=== PATIENT | female | born 1945 | race Caucasian/White ===

== ENCOUNTER 2017-01-22 11:17 | Emergency (ER) | payer MEDICARE, BC ==
--- NOTE | 2017-01-22 11:31 | Emergency Department Record ---
History of Present Illness - General Chief Complaint: Chest Pain Stated Complaint: CHEST PAIN Time Seen by Provider: 01/22/17 11:29 Source: Patient Mode of Arrival: Ambulatory Limitations: No limitations - History of Present Illness Initial Comments: The patient is here with multiple complaints. She just completed multiple ECT treatments during a psych hospital stay in [place] 10 days ago. Now for the last week she has been having abdominal cramping, intermittent vomiting, tremors , anxiety, dizziness, and muscle spasms. She states she did vomit yesterday and feels like her sweat smells like rotten eggs. She also has been having palpitations off and on. The patient was having her medicines adjusted by her psych doctor recently also and he has stopped most of her depression medicines. The patient did have Ritalin, Ativan, and Topamax stopped a month ago in the hospital. Complaint: Other Onset/Timin -: Week(s) Severity: Moderate Severity scale (1-10): 6 Quality: Aching Consistency: Constant Context: Recent illness Anginal Symptoms: Diaphoresis - Related Data Home Medications Medication Instructions Recorded Confirmed Last Taken Calcium Carb, Citrate/Vit D3 1 each PO DAILY 06/17/14 01/22/17 1 Day Ago [Citracal + D ER Tablet] ~01/21/17 Cholecalciferol (Vitamin D3) 2,000 unit PO DAILY 06/17/14 01/22/17 1 Day Ago [Vitamin D3] ~01/21/17 Doxycycline Hyclate [Doxycycline] 100 mg PO DAILY 06/17/14 01/22/17 1 Day Ago ~01/21/17 Duloxetine HCl [Duloxetine HCl] 120 mg PO DAILY 06/17/14 01/22/17 1 Day Ago ~01/21/17 Melatonin 10 mg PO QHS 06/17/14 01/22/17 1 Day Ago ~01/21/17 Nebivolol HCl [Bystolic] 10 mg PO DAILY 06/17/14 01/22/17 1 Day Ago ~01/21/17 [place]-3 Fatty Acids/Fish Oil [Fish 1 each PO DAILY 06/17/14 01/22/17 1 Day Ago Oil 1,000 mg Softgel] ~01/21/17 Temazepam [Temazepam] 15 mg PO QHS 06/17/14 01/22/17 1 Day Ago ~01/21/17 Trazodone HCl 150 mg PO QHS 06/17/14 01/22/17 1 Month Ago ~12/23/16 Albuterol Sulfate [Proair Hfa] 1 - 2 puff IH Q4H inhaler 08/09/16 01/22/17 1 Day Ago ~01/21/17 Ezetimibe [Zetia] 10 mg PO QD tab 08/09/16 01/22/17 1 Day Ago ~01/21/17 Tiotropium Br/Olodaterol HCl 4 gm IH BID 08/09/16 01/22/17 1 Day Ago [Stiolto Respimat Inhal [place]] ~01/21/17 Allergies Allergy/AdvReac Type Severity Reaction Status Date / Time ibuprofen Allergy Unknown HIVES Verified 01/22/17 11:29 ketorolac Allergy Unknown HIVES Verified 01/22/17 11:29 NSAIDS (Non-Steroidal Allergy Unknown HIVES Verified 01/22/17 11:29 Anti-Inflamma Pyrazoles Allergy Unknown HIVES Verified 01/22/17 11:29 Salicylates * Allergy Unknown HIVES Verified 01/22/17 11:29 [Salicylates *RETIRED-12/15/15] alendronate sodium Allergy PT UNSURE Verified 01/22/17 11:29 OF REACTION hydromorphone HCl Allergy HIVES Verified 01/22/17 11:29 [From Dilaudid] methotrexate Allergy DIARRHEA Verified 01/22/17 11:29 oxaprozin [From Daypro] Allergy HIVES Verified 01/22/17 11:29 quetiapine fumarate Allergy HIVES Verified 01/22/17 11:29 [From Seroquel] sulfasalazine Allergy HIVES Verified 01/22/17 11:29 [From Azulfidine] venlafaxine HCl Allergy HIVES Verified 01/22/17 11:29 [From Effexor] Travel Screening - Travel/Exposure Within Last 30 Days Have you traveled within the last 30 days?: No - Travel/Exposure Within Last Year Have you traveled outside the [place] in the last year?: No - Additonal Travel Details Have you been exposed to anyone with a communicable illness?: No - Travel Symptoms Symptom Screening: None Review of Systems Constitutional: Reports: Malaise. Denies: Chills, Fever Eyes: Denies: Eye discharge ENT: Denies: Congestion Respiratory: Denies: Cough, Dyspnea Cardiovascular: Reports: Arrhythmia. Denies: Chest pain, Dyspnea on exertion Endocrine: Denies: Fatigue Gastrointestinal: Reports: Nausea Genitourinary: Denies: Dysuria Musculoskeletal: Denies: Arthralgia, Back pain Past Medical History - SOCIAL HISTORY Smoking Status: Former smoker Alcohol Use: None Drug Use: None - RESPIRATORY Hx Bronchitis: Yes Hx COPD: Yes - CARDIOVASCULAR Hx Cardio Disorders: Yes Hx Irregular Heartbeat: Yes (states irregular beats) - NEURO Hx Neuro Disorders: Yes Comment:: memory loss, recent ECTs for depression - GI Hx GI Disorders: Yes Hx Abdominal Pain: Yes (ruq) Hx Diverticulitis: Yes Hx Reflux: Yes Hx Nausea/Vomiting: Yes (at initial onset but not currently) Hx of Polyps: Yes Comment:: hx mass with resection 1975 - Hx Genitourinary Disorders: No - ENDOCRINE Hx Endocrine Disorders: Yes Hx Diabetes: No Hx Thyroid Disease: Yes - MUSCULOSKELETAL Hx Musculoskeletal Disorders: Yes Hx Arthritis: Yes (mostly hands and wrists) Hx Osteoporosis: Yes Comment:: lupus less frequent flare ups - PSYCH Hx Psych Problems: Yes Hx Anxiety: Yes Hx Depression: Yes (ongoing process) - HEMATOLOGY/ONCOLOGY Hx Hematology/Oncology Disorders: No Family Medical History Any Significant Family History?: Yes Physical Exam - General General Appearance: Alert, Oriented x3, Cooperative, No acute distress - Head Head exam: Atraumatic, Normocephalic, Normal inspection - Eye Eye exam: Normal appearance, PERRL - ENT Throat exam: Normal inspection. negative: Tonsillar erythema, Tonsillar exudate - Neck Neck exam: Normal inspection, Full ROM. negative: Tenderness - Respiratory Respiratory exam: Normal lung sounds bilaterally. negative: Respiratory distress - Cardiovascular Cardiovascular Exam: Regular rate, Normal rhythm, Normal heart sounds, Tachycardia - GI/Abdominal GI/Abdominal exam: Soft, Normal bowel sounds. negative: Distended, Rebound, Rigid, Tenderness - Extremities Extremities exam: Normal inspection, Full ROM, Normal capillary refill. negative: Tenderness - Neurological Neurological exam: Alert, Normal gait. negative: Abnormal gait, Altered, Motor sensory deficit - Psychiatric Psychiatric exam: negative: Anxious, Depressed - Skin Skin exam: negative: Rash Course Vital Signs 01/22/17 11:19 Temperature 98.8 F Pulse Rate 136 H Respiratory 24 Rate Blood Pressure 150/118 Pulse Ox 98 - Reevaluation(s) Reevaluation #1: The patient is doing much better at this time. Her BP and HR are much improved and she denies any pain or discomfort. On exam her HR is 95 and her abdomen is very soft and nontender in all 4 quads. 01/22/17 12:23 Reevaluation #2: The patient is doing well. She denies any pain or discomfort and is resting comfortably. 01/22/17 14:37 Reevaluation #3: The patient is doing well. I did discuss the case with Dr. Degroot from [facility] and he agrees with the plan to admit the patient to [facility]. The patient also agrees with the plan. 01/22/17 15:45 Reevaluation #4: 2nd EKG: Sinus tach at 106, new flipped T's V2-4. 01/22/17 15:47 Medical Decision Making - Data Complexity MDM Data: Labs Ordered and/or Reviewed, X-Ray Ordered and/or Reviewed, EKG Ordered and/or Reviewed - Lab Data Result diagrams: 01/22/17 11:20 01/22/17 11:20 - EKG Data -: EKG Interpreted by Me (Sinus tach at 133.) EKG: No Acute Changes - Radiology Data Radiology results: Report reviewed (CXR: No acute dz. AXR: Constipation, paucity of SB gas.) Disposition Disposition: Transfer Clinical Impression: Chest pain, atypical Disposition: Acute Care Hospital Transfer Transfer To: [facility] Reason For Transfer: EKG changes Accepting Physician: Zane Time Discussed w/Accepting Physician: 15:46 Condition: (2) Stable Forms: Patient Portal Access Time of Disposition: 15:46 Quality - Quality Measures Quality Measures: N/A - Blood Pressure Screening View Details: Yes Blood Pressure Classification: Hypertensive Reading Systolic Measurement: 150 Diastolic Measurement: 118 Screening for High Blood Pressure: < Pre-Hypertensive BP, F/U Documented > [ G8950] Pre-Hypertensive Follow-up Interventions: Follow-up with rescreen every year.
[2017-01-22] MEDS ORDERED: 0.9 % SODIUM CHLORIDE 1,000 ML BAG IV ONE ×2 (11:36→12:10)
[2017-01-22] MEDS ORDERED: LORAZEPAM 2 MG/ML VIAL IV ONE ×2 (11:36→15:44)
[2017-01-22] MEDS ORDERED: ONDANSETRON HCL IV 4 MG/2 ML VIAL IVP ONE (11:40)
[2017-01-22 11:45] LABS: BASO % 0.3 % (0-6); EOS % 0.6 % (0-6); GRAN % 54.4 % (47-80); HEMOGLOBIN 17.1 gm/dl (11.6-16.0); LYMPH % 31.8 % (16-45); MEAN CELL VOLUME 88.7 fl (81-97); MEAN CORPUSCULAR HEMOGLOBIN 30.3 pg (27-33); MEAN CORPUSCULAR HGB CONC 34.2 g/dl (32-36); MEAN PLATELET VOLUME 10.1 fl (7.4-10.4); MONO % 12.9 % (0-9); PLATELET COUNT 328 K/uL (130-400); RED BLOOD COUNT 5.64 M/uL (3.80-5.40); RED CELL DISTRIBUTION WIDTH 13.8 % (11.5-14.5); WHITE BLOOD COUNT W/O DIFF 7.1 K/uL (4.2-12.2)
[2017-01-22 11:57] LABS: ANION GAP 14.4 (7-16); CARBON DIOXIDE 23.6 mmol/L (22-30)
[2017-01-22 11:58] LABS: ALBUMIN 4.5 gm/dL (3.5-5.0); BILIRUBIN,TOTAL 0.76 mg/dL (0.2-1.3); INR 0.99; PROTHROMBIN TIME (PATIENT) 10.7 SECONDS (9.5-12.1); TOTAL PROTEIN 7.8 gm/dL (6.3-8.2)
[2017-01-22 12:09] LABS: CKMB 4.5 ug/L (0-6); TROPONIN I 0.06 ng/mL (0.00-0.034)
[2017-01-22 14:47] LABS: CKMB 4.2 ug/L (0-6); TROPONIN I 0.075 ng/mL (0.00-0.034)
[2017-01-22] MEDS ORDERED: METOPROLOL TART 5 MG/5 ML VIAL IV ONE (18:31)
--- NOTE | 2017-01-23 14:33 | RADIOLOGY REPORT ---
EXAM: CHEST, TWO VIEWS HISTORY: LEFT SHOULDER PAIN, HEADACHE, DIZZINESS. TECHNIQUE: Two views of the chest were obtained. Comparison: Chest x-ray 03/05/14. FINDINGS: The lungs are clear. The cardiac silhouette and diaphragm are unremarkable. Healed fracture posterior right fourth and sixth ribs. IMPRESSION: NO ACUTE INTRATHORACIC PROCESS. JOB NUMBER: [id number] MTDD
--- NOTE | 2017-01-23 14:43 | RADIOLOGY REPORT ---
EXAM: ABDOMEN, TWO VIEWS HISTORY: LEFT LOWER QUADRANT ABDOMINAL PAIN, NAUSEA FOR ONE WEEK. TECHNIQUE: Two views of the abdomen were obtained. Comparison: None. FINDINGS: The diaphragm was not included on the film. Abundant fecal material throughout the colon. Paucity of small bowel gas. IMPRESSION: CONSTIPATION. JOB NUMBER: [id number] MTDD
== END 2017-01-22 19:04 | disposition short-term general hospital (02) ==
LOC: ER 11:17
DX: R07.89 Other chest pain (principal); R42 Dizziness and giddiness; R06.02 Shortness of breath; R11.2 Nausea with vomiting, unspecified; R10.9 Unspecified abdominal pain; R61 Generalized hyperhidrosis; M62.838 Other muscle spasm; Z87.891 Personal history of nicotine dependence
CPT/HCPCS: 99285 ×2; 96376; 96374; 96375; 96361; 82550; 83690; 85025; 85730; 85610; 80076; 82553; 84484; 80048; 84443; 74020; 71020; 93005; 93010; J2405; J2060; J7030

== ENCOUNTER 2018-06-17 16:13 | Emergency (ER) | payer MEDICARE, BC ==
--- NOTE | 2018-06-17 16:34 | Emergency Department Record ---
History of Present Illness - General Chief Complaint: Shortness of breath Stated Complaint: MIRLANDE Time Seen by Provider: 06/17/18 16:33 Source: Patient Mode of Arrival: Ambulatory Limitations: No limitations - History of Present Illness Initial Comments: The patient is here due to retrosternal CP for the last 2 days. The pain is a sharp stabbing pain in the L lower chest that radiates intermittently to the back. The patient states the pain lasts seconds to minutes and occurs every 2-5 minutes. The pain is worse with chest rotation and twisting and palpation. She has had mild SOB with it at times but no cough, sputum, or fever. MD Complaint: Chest pain, Shortness of breath Onset/Timin -: Days(s) Severity scale (1-10): 10 Quality: Sharp Consistency: Constant Improves With: Upright position Worsens With: Other Known History Of: Other Associated Symptoms: Chest pain Treatments Prior to Arrival: None - Related Data Home Medications Medication Instructions Recorded Confirmed Last Taken Desvenlafaxine Succinate [Pristiq] 50 mg PO DAILY 06/17/18 06/17/18 Unknown Diphenoxylate HCl/Atropine 1 each PO DAILY 06/17/18 06/17/18 Unknown [Lomotil 2.5-0.025 mg Tablet] Hydrocodone/APAP Elixir [[place] 15 ml PO Q4H PRN 06/17/18 06/17/18 Unknown 7.5mg/325mg/15ml] Ondansetron HCl [Zofran] 8 mg PO DAILY 06/17/18 06/17/18 Unknown Prochlorperazine Maleate 10 mg PO Q6H 06/17/18 06/17/18 Unknown [Compazine] Ranitidine HCl [Zantac] 150 mg PO DAILY 06/17/18 06/17/18 Unknown Previous Rx's Medication Instructions Recorded Doxycycline Monohydrate [Mondoxyne 100 mg PO BID #14 capsule 06/17/18 Nl] Allergies Allergy/AdvReac Type Severity Reaction Status Date / Time adhesive tape Allergy Unknown Unverified 05/17/18 13:42 amphetamine aspartate Allergy Unknown PT UNSURE Unverified 05/17/18 13:42 [From Adderall] OF REACTION amphetamine sulfate Allergy Unknown PT UNSURE Unverified 05/17/18 13:42 [From Adderall] OF REACTION bupropion HCl Allergy Unknown Unverified 05/17/18 13:42 [From Wellbutrin] codeine Allergy Unknown Unverified 05/17/18 13:42 dextroamphetamine saccharate Allergy Unknown PT UNSURE Unverified 05/17/18 13:42 [From Adderall] OF REACTION dextroamphetamine sulfate Allergy Unknown PT UNSURE Unverified 05/17/18 13:42 [From Adderall] OF REACTION ibuprofen Allergy Unknown HIVES Unverified 05/17/18 13:42 ketorolac Allergy Unknown HIVES Unverified 05/17/18 13:42 ketorolac tromethamine Allergy Unknown Unverified 05/17/18 13:42 [From Toradol] levocetirizine Allergy Unknown Unverified 05/17/18 13:42 dihydrochloride [From Xyzal] mirtazapine [From Remeron] Allergy Unknown Unverified 05/17/18 13:42 naproxen Allergy Unknown Unverified 05/17/18 13:42 NSAIDS (Non-Steroidal Allergy Unknown HIVES Unverified 05/17/18 13:42 Anti-Inflamma prednisone Allergy Unknown Unverified 05/17/18 13:42 Pyrazoles Allergy Unknown HIVES Unverified 05/17/18 13:42 Salicylates * Allergy Unknown HIVES Unverified 05/17/18 13:42 [Salicylates *RETIRED-12/15/15] alendronate sodium Allergy PT UNSURE Unverified 05/17/18 13:42 OF REACTION hydromorphone HCl Allergy HIVES Unverified 05/17/18 13:42 [From Dilaudid] methotrexate Allergy DIARRHEA Unverified 05/17/18 13:42 oxaprozin [From Daypro] Allergy HIVES Unverified 05/17/18 13:42 quetiapine fumarate Allergy HIVES Unverified 05/17/18 13:42 [From Seroquel] sulfasalazine Allergy HIVES Unverified 05/17/18 13:42 [From Azulfidine] venlafaxine HCl Allergy HIVES Unverified 05/17/18 13:42 [From Effexor] Travel Screening - Travel/Exposure Within Last 30 Days Have you traveled within the last 30 days?: No Review of Systems Constitutional: Denies: Chills, Fever Eyes: Denies: Eye discharge ENT: Denies: Congestion Respiratory: Reports: Dyspnea. Denies: Cough Cardiovascular: Reports: Chest pain. Denies: Arrhythmia, Dyspnea on exertion Endocrine: Denies: Fatigue Gastrointestinal: Denies: Diarrhea, Vomiting Genitourinary: Denies: Dysuria Musculoskeletal: Denies: Arthralgia Skin: Denies: Bruising Past Medical History - SOCIAL HISTORY Smoking Status: Former smoker - RESPIRATORY Hx Respiratory Disorders: Yes Hx Bronchitis: Yes Hx COPD: Yes Comment:: cancer - CARDIOVASCULAR Hx Cardio Disorders: Yes Hx Irregular Heartbeat: Yes (states irregular beats) - NEURO Hx Neuro Disorders: Yes Comment:: memory loss, recent ECTs for depression - GI Hx GI Disorders: Yes Hx Abdominal Pain: Yes (ruq) Hx Diverticulitis: Yes Hx Reflux: Yes Hx Nausea/Vomiting: Yes (at initial onset but not currently) Hx of Polyps: Yes Comment:: hx mass with resection 1975 - Hx Genitourinary Disorders: No - ENDOCRINE Hx Endocrine Disorders: Yes Hx Diabetes: No Hx Thyroid Disease: Yes - MUSCULOSKELETAL Hx Musculoskeletal Disorders: Yes Hx Arthritis: Yes (mostly hands and wrists) Hx Osteoporosis: Yes Comment:: lupus less frequent flare ups - PSYCH Hx Psych Problems: Yes Hx Anxiety: Yes Hx Depression: Yes (ongoing process) - HEMATOLOGY/ONCOLOGY Hx Hematology/Oncology Disorders: Yes Hx Cancer: Yes Hx Chemotherapy: No Hx Radiation Therapy: No Family Medical History Any Significant Family History?: No Physical Exam - General General Appearance: Alert, Oriented x3, Cooperative, No acute distress - Head Head exam: Atraumatic, Normocephalic, Normal inspection - Eye Eye exam: Normal appearance, PERRL - ENT Throat exam: Normal inspection. negative: Tonsillar erythema, Tonsillar exudate - Neck Neck exam: Normal inspection, Full ROM. negative: Tenderness - Respiratory Respiratory exam: Normal lung sounds bilaterally, Chest wall tenderness ( Palpation of the lower sternum exactly reproduces the patient's pain. ). negative: Respiratory distress, Stridor, Wheezes - Cardiovascular Cardiovascular Exam: Regular rate, Normal rhythm, Normal heart sounds - GI/Abdominal GI/Abdominal exam: Soft, Normal bowel sounds. negative: Tenderness - Extremities Extremities exam: Normal inspection, Full ROM, Normal capillary refill. negative: Tenderness - Back Back exam: Reports: Normal inspection Image of Body Front/Back: 1 - Location of pain and tenderness. - Neurological Neurological exam: Alert, Normal gait. negative: Abnormal gait Course Vital Signs 06/17/18 16:18 Pulse Rate 103 H Respiratory 22 Rate Blood Pressure 146/80 Pulse Ox 97 - Reevaluation(s) Reevaluation #1: The patient is feeling a lot better after the [employer]. Her pain has MUCH improved but is still present intermittently with sitting forward on the bed and with chest rotation. The pain does continue to be reproducible with palpation. She denies any SOB, MIRLANDE, or sweating. 06/17/18 18:10 Reevaluation #2: I did discuss the CT report with the patient and family. There clearly is no heart or lung issue that will keep the patient in the hospital tonight. There does seem to be a small RLL mass which is hard to determine is new or old. Due to that fact the patient is to take the CT to her Oncologist this week for further evaluation. Her pain is much improved and does appear to be reproducible. She is to keep taking her oral home pain meds for that. I doubt any pneumonia due to the fact the patient has no fever, WBC, or cough but will cover her for pneumonia with Doxycycline. 06/17/18 18:46 Medical Decision Making - Data Complexity MDM Data: Labs Ordered and/or Reviewed, X-Ray Ordered and/or Reviewed, EKG Ordered and/or Reviewed - Lab Data Result diagrams: 06/17/18 16:40 06/17/18 16:40 - EKG Data -: EKG Interpreted by Wi EKG: No Acute Changes, Normal EKG - Radiology Data Radiology results: Report reviewed (CXR: R sided opacities, O/W neg. CT: Neg for PE or dissection. 2.5x2.8 cm mass RLL, possible distal infiltrate.) Disposition Disposition: Discharge Clinical Impression: Acute chest wall pain Disposition: Home, Self-Care Condition: (2) Stable Instructions: Chest Wall Pain (ED) Additional Instructions: Please take your home pain medicines as needed and please see your Oncologist this week to compare the CT today with your most recent scan. Continue the Doxycycline tomorrow. Return to the ER for any worsening symptoms, pain, or fever. Prescriptions: Doxycycline Monohydrate [Mondoxyne Nl] 100 mg PO BID #14 capsule Forms: Patient Portal Access Time of Disposition: 18:50 Quality - Quality Measures Quality Measures: N/A - Blood Pressure Screening View Details: Yes Does Patient Have Any of the Following: No Blood Pressure Classification: Pre-Hypertensive BP Reading Systolic Measurement: 146 Diastolic Measurement: 80 Screening for High Blood Pressure: < Pre-Hypertensive BP, F/U Documented > [ G8950] Pre-Hypertensive Follow-up Interventions: Referral to alternative/primary care provider.
[2018-06-17] MEDS ORDERED: ACETAMINOPHEN 1,000 MG/100 ML BTL IVPB ONE (16:40)
[2018-06-17 16:54] LABS: HEMATOCRIT 41.3 % (35.0-47.0); HEMOGLOBIN 13.2 gm/dl (11.6-16.0); MEAN CORPUSCULAR HEMOGLOBIN 29.1 pg (27-33); MEAN PLATELET VOLUME 8.8 fl (7.4-10.4); PLATELET COUNT 333 K/uL (130-400); RED BLOOD COUNT 4.54 M/uL (3.80-5.40); RED CELL DISTRIBUTION WIDTH 14.9 % (11.5-14.5); WHITE BLOOD COUNT W/O DIFF 5.7 K/uL (4.2-12.2)
[2018-06-17 17:07] LABS: BLOOD UREA NITROGEN 13 mg/dL (8-23); CREATININE 0.9 mg/dL (0.5-0.9); EST GLOMERULAR FILTRATION RATE > 60 mL/min; PARTIAL THROMBOPLASTIN TIME 30.3 SECONDS (24.5-39.1); PROTHROMBIN TIME (PATIENT) 10.5 SECONDS (9.5-12.1)
[2018-06-17 17:10] LABS: GLUCOSE,RANDOM 102 mg/dL (74-109)
[2018-06-17 17:12] LABS: CREATINE PHOSPHOKINASE 66 U/L (26-192)
[2018-06-17 17:14] LABS: CKMB 2.6 ng/mL (<3.77)
[2018-06-17] MEDS ORDERED: 0.9 % SODIUM CHLORIDE 1,000 ML BAG IV ONE (17:22)
[2018-06-17] MEDS ORDERED: DOXYCYCLINE HYCLATE 100 MG CAPSULE PO ONE (18:45)
[2018-06-17] MEDS ORDERED: HEPARIN SODIUM FLUSH 100 UNITS/ML SYR 5ML IVP ONE (19:05)
--- NOTE | 2018-06-19 13:33 | RADIOLOGY REPORT ---
EXAM: CHEST, TWO VIEWS HISTORY: RIGHT LOWER LATERAL RIB PAIN. NO KNOWN INJURY. SYMPTOMS FOR THE PAST TWO DAYS. TECHNIQUE: PA and lateral upright views of the chest were obtained. Comparison: 03/25/17 and 03/05/14. FINDINGS: An [id number] catheter is in place on the right. There is volume loss within the right hemithorax with focal parenchymal opacity within the right perihilar region. The appearance suggest an area of previous surgery or scarring. There are mild areas of infiltrate within the right mid and lower lung garcia which may indicate superimposed pneumonia. There is no pneumothorax or effusion. There are old healed right rib fractures. There are no visible acute osseous abnormalities. There is minor chronic anterior wedging of a single mid thoracic vertebral body. Mild degenerative changes are also present within the spine. IMPRESSION: 1. FOCAL PARENCHYMAL OPACITY WITHIN THE RIGHT PERIHILAR REGIONS AND VOLUME LOSS WITHIN THE RIGHT HEMITHORAX SUGGESTING AN AREA OF PREVIOUS SURGERY OR SCARRING. 2. PATCHY INFILTRATES WITHIN THE RIGHT MID AND LOWER LUNG GARCIA WHICH MAY INDICATE SUPERIMPOSED PNEUMONIA. 3. NO ACUTE OSSEOUS ABNORMALITY IDENTIFIED. JOB NUMBER: [id number] MTDD
--- NOTE | 2018-06-19 14:28 | CT ANGIOGRAM REPORT ---
EXAM: CT ANGIOGRAM OF THE CHEST WITH POST PROCESSING HISTORY: CHEST PAIN AND RIGHT LOWER RIB PAIN. PREVIOUS HISTORY OF SMALL CELL LUNG CANCER WITHIN THE RIGHT LUNG STATUS POST CHEMOTHERAPY AND RADIATION THERAPY. TECHNIQUE: Standard CT angiography of the chest was performed with post processing following the bolus administration of 90 ml of Omnipaque 350. Comparison: Chest x-ray from the same date. FINDINGS: The pulmonary arterial tree is normal. There is no pulmonary embolism. There is no aortic aneurysm or dissection. The heart is normal in size. Coronary artery calcifications are present. There is no pericardial effusion. There are scattered nonenlarged mediastinal lymph nodes. There is a mass like area of consolidation within the infrahilar right lower lobe measuring 2.5 x 2.8 cm. This partially encases the right lower lobe bronchovascular structures. This extends contiguously to the right hilum. There is a separate spiculated appearing nodule within the posteromedial aspect of the right lower lobe measuring 1.8 x 1.2 cm. There are areas of post radiation fibrosis within the right perihilar lung. There are nonspecific infiltrates within the right lower lobe which are suspicious for superimposed pneumonia. These infiltrates also have a slightly nodular configuration. There is a small right pleural effusion. There is no pneumothorax. There are two noncalcified nodules within the left lung. There is a 4 mm noncalcified nodule within the apex centrally on image number 22. A 4 mm nodule is also noted within the left lower lobe on image number 64. The left lung is otherwise clear. The visualized portions of the upper abdomen are unremarkable. There are old healed fractures of the posterolateral aspects of the right fourth and sixth ribs. No acute osseous abnormality is identified. Degenerative changes are present within the thoracic spine. IMPRESSION: 1. NO EVIDENCE FOR PULMONARY EMBOLUS OR AORTIC DISSECTION. 2. THERE IS A 2.5 X 2.8 CM RIGHT INFRAHILAR MASS PARTIALLY ENCASING THE RIGHT LOWER LOBE BRONCHOVASCULAR STRUCTURES. THERE IS CONTIGUOUS EXTENSION TO THE RIGHT HILUM. 3. ADDITIONAL NODULAR AREAS ARE ALSO NOTED WITHIN THE RIGHT LOWER LOBE. THE NEXT LARGEST NODULE IS LOCATED WITHIN THE POSTEROMEDIAL ASPECT AND MEASURES 1.8 X 1.2 CM. 4. SMALL RIGHT PLEURAL EFFUSION. 5. POST RADIATION CHANGES WITHIN THE RIGHT PERIHILAR LUNG. THERE ARE FOCAL INFILTRATES WELL WITHIN THE RIGHT LOWER LOBE WHICH MAY INDICATED SUPERIMPOSED PNEUMONIA. 6. THERE ARE TWO 4 MM NONCALCIFIED NODULES WITHIN THE LEFT LUNG. JOB NUMBER: [id number] [facility]
== END 2018-06-17 19:08 | disposition home or self-care (01) ==
LOC: ER 16:13
DX: R07.89 Other chest pain (principal); R06.02 Shortness of breath; M54.9 Dorsalgia, unspecified; R91.8 Other nonspecific abnormal finding of lung field; J44.9 Chronic obstructive pulmonary disease, unspecified; Z87.891 Personal history of nicotine dependence; C34.91 Malignant neoplasm of unspecified part of right bronchus or lung
CPT/HCPCS: 99284 ×2; 96374; 82550; 85025; 85730; 85610; 82553; 80048; 80053; 84484; 85379; 85027; 71046; 71275; 93005; 93010; Q9967; J1642; J7030

== ENCOUNTER 2018-06-27 09:39 | Emergency (ER) | payer MEDICARE, BC ==
[2018-06-27 10:05] LABS: HEMATOCRIT 41.3 % (35.0-47.0); MEAN CORPUSCULAR HGB CONC 31.5 g/dl (32-36); MEAN PLATELET VOLUME 9.2 fl (7.4-10.4); PLATELET COUNT 322 K/uL (130-400); RED BLOOD COUNT 4.49 M/uL (3.80-5.40); RED CELL DISTRIBUTION WIDTH 15.3 % (11.5-14.5); WHITE BLOOD COUNT W/O DIFF 5.5 K/uL (4.2-12.2)
--- NOTE | 2018-06-27 10:12 | Emergency Department Record ---
History of Present Illness - General Chief Complaint: Shortness of breath Stated Complaint: SOB Time Seen by Provider: 06/27/18 09:41 Source: Patient Mode of Arrival: Wheelchair Limitations: No limitations - History of Present Illness Initial Comments: The patient is here due to having problems with L sided CP and coughing for the last 12 days. She was in the ER here 10 days ago for the same issues. She did have normal lab work and had a PE study that was neg for a PE but did demonstrate a R hilar tumor with post obstructive pneumonia changes. She was started on an oral Abx and was supposed to see her Oncologist last week for a repeat CT. The patient was not able to keep the appointment so it was rescheduled for today at 1pm. The patient did go to the [facility] 2 days ago due to the persistent coughing and L sided rib pain and did have her oral Abx changed to Levaquin. Since she feels no better and did have an appointment with her PCP today. Due to the persistent issues she was again sent to the ER for treatment. The patient is mainly complaining of SOB and L CP with coughing and twisting. She denies any fever, sputum production, LEDBETTER, or CP at rest. MD Complaint: Cough, Shortness of breath Onset/Timin -: Days(s) Severity scale (1-10): 10 Quality: Sharp Consistency: Constant Improves With: Oxygen Worsens With: Exertion Known History Of: Other Associated Symptoms: Cough Treatments Prior to Arrival: None - Related Data Home Oxygen Therapy: No Allergies Allergy/AdvReac Type Severity Reaction Status Date / Time adhesive tape Allergy Unknown Unverified 05/17/18 13:42 amphetamine aspartate Allergy Unknown PT UNSURE Unverified 05/17/18 13:42 [From Adderall] OF REACTION amphetamine sulfate Allergy Unknown PT UNSURE Unverified 05/17/18 13:42 [From Adderall] OF REACTION bupropion HCl Allergy Unknown Unverified 05/17/18 13:42 [From Wellbutrin] codeine Allergy Unknown Unverified 05/17/18 13:42 dextroamphetamine saccharate Allergy Unknown PT UNSURE Unverified 05/17/18 13:42 [From Adderall] OF REACTION dextroamphetamine sulfate Allergy Unknown PT UNSURE Unverified 05/17/18 13:42 [From Adderall] OF REACTION ibuprofen Allergy Unknown HIVES Unverified 05/17/18 13:42 ketorolac Allergy Unknown HIVES Unverified 05/17/18 13:42 ketorolac tromethamine Allergy Unknown Unverified 05/17/18 13:42 [From Toradol] levocetirizine Allergy Unknown Unverified 05/17/18 13:42 dihydrochloride [From Xyzal] mirtazapine [From Remeron] Allergy Unknown Unverified 05/17/18 13:42 naproxen Allergy Unknown Unverified 05/17/18 13:42 NSAIDS (Non-Steroidal Allergy Unknown HIVES Unverified 05/17/18 13:42 Anti-Inflamma prednisone Allergy Unknown Unverified 05/17/18 13:42 Pyrazoles Allergy Unknown HIVES Unverified 05/17/18 13:42 Salicylates * Allergy Unknown HIVES Unverified 05/17/18 13:42 [Salicylates *RETIRED-12/15/15] alendronate sodium Allergy PT UNSURE Unverified 05/17/18 13:42 OF REACTION hydromorphone HCl Allergy HIVES Unverified 05/17/18 13:42 [From Dilaudid] methotrexate Allergy DIARRHEA Unverified 05/17/18 13:42 oxaprozin [From Daypro] Allergy HIVES Unverified 05/17/18 13:42 quetiapine fumarate Allergy HIVES Unverified 05/17/18 13:42 [From Seroquel] sulfasalazine Allergy HIVES Unverified 05/17/18 13:42 [From Azulfidine] venlafaxine HCl Allergy HIVES Unverified 05/17/18 13:42 [From Effexor] Travel Screening - Travel/Exposure Within Last 30 Days Have you traveled within the last 30 days?: No Review of Systems Constitutional: Denies: Chills, Fever Eyes: Denies: Eye discharge ENT: Denies: Congestion, Dental pain Respiratory: Reports: Cough, Dyspnea Cardiovascular: Reports: Chest pain (with coughing.). Denies: Arrhythmia Endocrine: Reports: Fatigue Gastrointestinal: Denies: Abdominal pain Genitourinary: Denies: Dysuria Musculoskeletal: Denies: Arthralgia Skin: Denies: Bruising Past Medical History - SOCIAL HISTORY Smoking Status: Former smoker Alcohol Use: None Drug Use: None - RESPIRATORY Hx Respiratory Disorders: Yes Hx Bronchitis: Yes Hx COPD: Yes Hx Pneumonia: Yes Comment:: cancer - CARDIOVASCULAR Hx Cardio Disorders: Yes Hx Irregular Heartbeat: Yes (states irregular beats) - NEURO Hx Neuro Disorders: Yes Comment:: memory loss, recent ECTs for depression - GI Hx GI Disorders: Yes Hx Abdominal Pain: Yes (ruq) Hx Diverticulitis: Yes Hx Reflux: Yes Hx Nausea/Vomiting: Yes (at initial onset but not currently) Hx of Polyps: Yes Comment:: hx mass with resection 1975 - Hx Genitourinary Disorders: No - ENDOCRINE Hx Endocrine Disorders: Yes Hx Diabetes: No Hx Thyroid Disease: Yes - MUSCULOSKELETAL Hx Musculoskeletal Disorders: Yes Hx Arthritis: Yes (mostly hands and wrists) Hx Osteoporosis: Yes Comment:: lupus less frequent flare ups - PSYCH Hx Psych Problems: Yes Hx Anxiety: Yes Hx Depression: Yes (ongoing process) - HEMATOLOGY/ONCOLOGY Hx Hematology/Oncology Disorders: Yes Hx Cancer: Yes Hx Chemotherapy: No Hx Radiation Therapy: No Family Medical History Any Significant Family History?: Yes Physical Exam - General General Appearance: Alert, Oriented x3, Cooperative, No acute distress - Head Head exam: Atraumatic, Normocephalic, Normal inspection - Eye Eye exam: Normal appearance, PERRL, EOMI - ENT Throat exam: Normal inspection. negative: Tonsillar erythema, Tonsillar exudate - Neck Neck exam: Normal inspection, Full ROM. negative: Tenderness - Respiratory Respiratory exam: Normal lung sounds bilaterally, Chest wall tenderness (The L sided CP is 100% reproducible to palpation of the L chest wall. There is no rash or erythema present on the skin.). negative: Respiratory distress - Cardiovascular Cardiovascular Exam: Regular rate, Normal rhythm, Normal heart sounds. negative : Diastolic murmur, Systolic murmur - GI/Abdominal GI/Abdominal exam: Soft, Normal bowel sounds. negative: Tenderness - Extremities Extremities exam: Normal inspection, Full ROM, Normal capillary refill. negative: Tenderness - Back Back exam: Reports: Normal inspection - Neurological Neurological exam: Alert, Normal gait, Oriented X3. negative: Abnormal gait, Altered, Motor sensory deficit Course Vital Signs 06/27/18 09:44 Temperature 98.6 F Pulse Rate 104 H Respiratory 20 Rate Blood Pressure 126/80 Pulse Ox 99 - Reevaluation(s) Reevaluation #1: The patient is resting comfortably at this time. She denies any new pain or discomfort and has no SOB. I did discuss the normal test results with her and the need for F/U with her Oncologist. I also did discuss the case with Dr. Espinoza and he feels the patient is stable for discharge and would like her on Decadron for 5 weeks in a tapering dose. He also would like her to keep her appointment there today and to see him as previously planned. 06/27/18 11:13 Medical Decision Making - Data Complexity MDM Data: Labs Ordered and/or Reviewed, X-Ray Ordered and/or Reviewed, EKG Ordered and/or Reviewed - Lab Data Result diagrams: 06/27/18 09:50 06/27/18 09:50 Lab Results 06/27/18 Range/Units 09:50 WBC 5.5 (4.2-12.2) K/uL RBC 4.49 (3.80-5.40) M/uL Hgb 13.0 (11.6-16.0) gm/dl Hct 41.3 (35.0-47.0) % MCV 92.0 (81-97) fl MCH 29.0 (27-33) pg MCHC 31.5 L (32-36) g/dl RDW 15.3 H (11.5-14.5) % Plt Count 322 (130-400) K/uL MPV 9.2 (7.4-10.4) fl Eosinophils % Not Reportable Basophils % Not Reportable - EKG Data -: EKG Interpreted by Me EKG: No Acute Changes, Normal EKG - Radiology Data Radiology results: Report reviewed (CXR: Neg for acute changes. There are chronic changes to the R lower lobe but no acute infiltrate.) Disposition Disposition: Discharge Clinical Impression: Acute chest wall pain Disposition: Home, Self-Care Condition: (2) Stable Instructions: Dyspnea (ED) Additional Instructions: Please continue your regular medicines and please start the Decadron. Please see Dr. Espinoza as planned and proceed to the ER for any worsening symptoms. Forms: Patient Portal Access Time of Disposition: 11:15 Quality - Quality Measures Quality Measures: N/A - Blood Pressure Screening View Details: Yes Does Patient Have Any of the Following: No Blood Pressure Classification: Normal BP Reading Systolic Measurement: 119 Diastolic Measurement: 70 Screening for High Blood Pressure: < Normal BP, F/U Not Required > [G8783]
[2018-06-27 10:13] LABS: PLATELET ESTIMATE NORMAL (NORMAL)
[2018-06-27 10:15] LABS: BLOOD UREA NITROGEN 22 mg/dL (8-23); EST GLOMERULAR FILTRATION RATE 58 mL/min
[2018-06-27 10:18] LABS: GLUCOSE,RANDOM 99 mg/dL (74-109)
[2018-06-27 10:21] LABS: CREATINE PHOSPHOKINASE 48 U/L (26-192)
[2018-06-27 10:22] LABS: CKMB 2.7 ng/mL (<3.77)
[2018-06-27 10:26] LABS: INR 1.1; PARTIAL THROMBOPLASTIN TIME 28.2 SECONDS (24.5-39.1); PROTHROMBIN TIME (PATIENT) 10.7 SECONDS (9.5-12.1)
[2018-06-27] MEDS ORDERED: HYDROCODONE/APAP 7.5/325 15ML ELIXIR PO ONE (10:34)
--- NOTE | 2018-06-29 06:51 | RADIOLOGY REPORT ---
EXAM: CHEST, TWO VIEWS HISTORY: SHORTNESS OF BREATH. TECHNIQUE: Frontal and lateral views of the chest were performed. Comparison: 06/25/18. FINDINGS: Right [id number] catheter. The heart size is normal. Persistent opacity right hemithorax. Atelectasis right lung base. No acute type infiltrate or pleural effusion. IMPRESSION: PERSISTENT OPACITY RIGHT HEMITHORAX. RIGHT [id number] CATHETER IN PLACE. NO ACUTE PROCESS. JOB NUMBER: [id number] [facility]
== END 2018-06-27 11:29 | disposition home or self-care (01) ==
LOC: ER 09:39
DX: R07.89 Other chest pain (principal); R06.02 Shortness of breath; J44.9 Chronic obstructive pulmonary disease, unspecified; Z87.891 Personal history of nicotine dependence
CPT/HCPCS: 99284 ×2; 82550; 85730; 85610; 82553; 80048; 84484; 85027; 71046; 93005; 93010; J3490

== ENCOUNTER 2018-09-12 22:32 | Inpatient (IN) | payer MEDICARE, BC ==
--- NOTE | 2018-09-12 22:58 | Emergency Department Record ---
History of Present Illness - General Chief Complaint: Slurred speech Stated Complaint: SLURRING,LOSS OF BALANCE Time Seen by Provider: 09/12/18 22:40 Source: Patient, Family - History of Present Illness Initial Comments: The patient has been diagnosed with small cell lung cancer in June of 2017. She was treated with chemo and radiation and finished all courses in 6 months and is currently in remission according to her oncologist Dr. Espinoza. On Monday she began to feel dizzy with the room spinning. She fell from standing position Monday. Her noticed her speech was slightly slurred around 1645 tonight before he went to the basketball game. He also noticed that her medications have been all off schedule as well. She had been on Sacaton liquid for the past year and was switched to ultram which she took Monday. She also has been noted to have some confusion the past 2 days: she thought is was 10 a.m. when it was 10 pm tonight, also not oriented to day, and confusing her doctors, she was trying to cancel appointments by calling late at night. When he returned from the basketball game he stated the slurred speech was worse so he brought her here. - Related Data Home Medications: Home Medications Medication Instructions Recorded Confirmed Last Taken Diphenhydramine HCl [Allergy] 25 mg PO Q6H PRN 09/12/18 09/12/18 Unknown Docusate Sodium [Colace] 100 mg PO BID 09/12/18 09/12/18 Unknown Quetiapine Fumarate [Seroquel] 25 mg PO DAILY 09/12/18 09/12/18 Unknown Quetiapine Fumarate [Seroquel] 50 mg PO QHS 09/12/18 09/12/18 Unknown Tramadol HCl [Ultram] 50 mg PO Q8H PRN 09/12/18 09/12/18 Unknown Allergies/Adverse Reactions: Allergies Allergy/AdvReac Type Severity Reaction Status Date / Time adhesive tape Allergy Unknown BLISTERS Verified 09/12/18 23:31 amphetamine aspartate Allergy Unknown PT UNSURE Verified 09/12/18 23:31 [From Adderall] OF REACTION amphetamine sulfate Allergy Unknown PT UNSURE Verified 09/12/18 23:31 [From Adderall] OF REACTION bupropion HCl Allergy Unknown HIVES Verified 09/12/18 23:31 [From Wellbutrin] dextroamphetamine saccharate Allergy Unknown PT UNSURE Verified 09/12/18 23:31 [From Adderall] OF REACTION dextroamphetamine sulfate Allergy Unknown PT UNSURE Verified 09/12/18 23:31 [From Adderall] OF REACTION ibuprofen Allergy Unknown HIVES Verified 09/12/18 23:31 ketorolac Allergy Unknown HIVES Verified 09/12/18 23:31 ketorolac tromethamine Allergy Unknown HIVES Verified 09/12/18 23:31 [From Toradol] levocetirizine Allergy Unknown PT UNSURE Verified 09/12/18 23:31 dihydrochloride OF REACTION [From Xyzal] mirtazapine [From Remeron] Allergy Unknown PT UNSURE Verified 09/12/18 23:31 OF REACTION naproxen Allergy Unknown HIVES Verified 09/12/18 23:31 NSAIDS (Non-Steroidal Allergy Unknown HIVES Verified 09/12/18 23:31 Anti-Inflamma prednisone Allergy Unknown ANAPHYLAXIS Verified 09/12/18 23:31 Pyrazoles Allergy Unknown HIVES Verified 09/12/18 23:31 Salicylates * Allergy Unknown HIVES Verified 09/12/18 23:31 [Salicylates *RETIRED-12/15/15] alendronate sodium Allergy PT UNSURE Verified 09/12/18 23:31 OF REACTION hydromorphone HCl Allergy HIVES Verified 09/12/18 23:31 [From Dilaudid] methotrexate Allergy DIARRHEA Verified 09/12/18 23:31 oxaprozin [From Daypro] Allergy HIVES Verified 09/12/18 23:31 quetiapine fumarate Allergy HIVES Verified 09/12/18 23:31 [From Seroquel] sulfasalazine Allergy HIVES Verified 09/12/18 23:31 [From Azulfidine] venlafaxine HCl Allergy HIVES Verified 09/12/18 23:31 [From Effexor] Review of Systems Reviewed: No additional complaints except as noted below Constitutional: Reports: As per HPI. Denies: Chills, Fever, Malaise, Night sweats, Weakness, Weight change Eyes: Reports: As per HPI. Denies: Eye discharge, Eye pain, Photophobia, Vision change ENT: Reports: As per HPI. Denies: Congestion, Dental pain, Ear pain, Epistaxis , Hearing loss, Throat pain Respiratory: Reports: As per HPI. Denies: Cough, Dyspnea, Hemoptysis, Stridor, Wheezes Cardiovascular: Reports: As per HPI. Denies: Arrhythmia, Chest pain, Dyspnea on exertion, Edema, Murmurs, Orthopnea, Palpitations, Paroxysmal nocturnal dyspnea, Rheumatic Fever, Syncope Endocrine: Reports: As per HPI. Denies: Fatigue, Heat or cold intolerance, Polydipsia, Polyuria Gastrointestinal: Reports: As per HPI. Denies: Abdominal pain, Constipation, Diarrhea, Hematemesis, Hematochezia, Melena, Nausea, Vomiting Genitourinary: Reports: As per HPI. Denies: Abnormal menses, Discharge, Dyspareunia, Dysuria, Frequency, Hematuria, Incontinence, Retention, Urgency Musculoskeletal: Reports: As per HPI. Denies: Arthralgia, Back pain, Gout, Joint swelling, Myalgia, Neck pain Skin: Reports: As per HPI. Denies: Bruising, Change in color, Change in hair/ nails, Lesions, Pruritus, Rash Neurological: Reports: As per HPI. Denies: Abnormal gait, Confusion, Headache, Numbness, Paresthesias, Seizure, Tingling, Tremors, Vertigo, Weakness Psychiatric: Reports: As per HPI. Denies: Anxiety, Auditory hallucinations, Depression, Homicidal thoughts, Suicidal thoughts, Visual hallucinations Hematological/Lymphatic: Reports: As per HPI. Denies: Anemia, Blood Clots, Easy bleeding, Easy bruising, Swollen glands Past Medical History - SOCIAL HISTORY Smoking Status: Former smoker Drug Use: None - RESPIRATORY Hx Respiratory Disorders: Yes Hx Bronchitis: Yes Hx COPD: Yes Hx Pneumonia: Yes Comment:: cancer - CARDIOVASCULAR Hx Cardio Disorders: Yes Hx Irregular Heartbeat: Yes (states irregular beats) - NEURO Hx Neuro Disorders: Yes Comment:: memory loss, recent ECTs for depression - GI Hx GI Disorders: Yes Hx Abdominal Pain: Yes (ruq) Hx Diverticulitis: Yes Hx Reflux: Yes Hx Nausea/Vomiting: Yes (at initial onset but not currently) Hx of Polyps: Yes Comment:: hx mass with resection 1975 - Hx Genitourinary Disorders: No - ENDOCRINE Hx Endocrine Disorders: Yes Hx Diabetes: No Hx Thyroid Disease: Yes - MUSCULOSKELETAL Hx Musculoskeletal Disorders: Yes Hx Arthritis: Yes (mostly hands and wrists) Hx Osteoporosis: Yes Comment:: lupus less frequent flare ups - PSYCH Hx Psych Problems: Yes Hx Anxiety: Yes Hx Depression: Yes (ongoing process) - HEMATOLOGY/ONCOLOGY Hx Hematology/Oncology Disorders: Yes Hx Cancer: Yes Hx Chemotherapy: No Hx Radiation Therapy: No Physical Exam - General General Appearance: Alert, Oriented x3, Cooperative, No acute distress, Other ( alopecia wearing beret) - Head Head exam: Normal inspection Head exam detail: Other (alopecia) - Eye Eye exam: Normal appearance, PERRL, EOMI. negative: Conjunctival injection, Nystagmus Pupils: Normal accommodation - ENT ENT exam: Normal exam, Mucous membranes moist, Normal external ear exam, Normal orophraynx, TM's normal bilaterally. negative: Mucous membranes dry Ear exam: Normal external inspection. negative: External canal tenderness Nasal Exam: Normal inspection. negative: Discharge, Sinus tenderness Mouth exam: Normal external inspection, Tongue normal Teeth exam: Normal inspection. negative: Dental caries Throat exam: Normal inspection. negative: Tonsillar erythema, Tonsillomegaly, Tonsillar exudate - Neck Neck exam: Normal inspection, Full ROM. negative: Lymphadenopathy, Meningismus , Tenderness - Respiratory Respiratory exam: Normal lung sounds bilaterally. negative: Accessory muscle use, Chest wall tenderness, Respiratory distress - Cardiovascular Cardiovascular Exam: Normal rhythm, Normal heart sounds, Tachycardia - GI/Abdominal GI/Abdominal exam: Soft, Normal bowel sounds. negative: Tenderness - Rectal Rectal exam: Deferred - exam: Deferred - Extremities Extremities exam: Normal inspection, Full ROM, Normal capillary refill. negative: Calf tenderness, Pedal edema, Tenderness - Back Back exam: Reports: Normal inspection, Full ROM. Denies: Muscle spasm, Rash noted, Tenderness - Neurological Neurological exam: Alert, CN II-XII intact, Normal gait, Oriented X3, Reflexes normal, Other (trace of slurred speech). negative: Motor sensory deficit - Psychiatric Psychiatric exam: Normal affect, Normal mood - Skin Skin exam: Dry, Intact, Normal color, Warm Course Vital Signs 09/12/18 22:38 Temperature 98.1 F Pulse Rate [ 101 H Pulse Ox Probe] Respiratory 24 Rate Blood Pressure 111/54 [Right Arm] Pulse Ox 96 - Reevaluation(s) Reevaluation #1: returned from CT scan and states she gets all jittery when she tries to lay down at night to sleep. 09/12/18 23:24 Reevaluation #2: Discussed with about admission. He prefers she be admitted here as they live in town here. Her confusion is new and she is unable to tell us if she took her evening medications which she normally always could in the past. She also thinks it is September 26. She was confused when the nurse helped her use the bathroom to obtain a UA and she asked me if she could "get dressed now" when her test results haven't returned. 09/12/18 23:59 Medical Decision Making - Management Options MDM Management: Additional Work-up Planned (e.g. 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 No hemorrhage. No acute findings per [facility]. CXR: Post operative changes and consolidtion are present in the right lung. Clinical correlation for pneumonia and comparison with prior exams recommended. Per [facility]. ), EKG Ordered and/or Reviewed - Lab Data Result diagrams: 09/12/18 22:55 09/12/18 22:55 - EKG Data -: EKG Interpreted by Me EKG: No Acute Changes, Unchanged From Previous (esentially unchanged except for one PVC and tachycardia at 101.) Disposition Disposition: Admit Clinical Impression: Confusion Pneumonia Qualifiers: Pneumonia type: due to unspecified organism Laterality: right Lung location: unspecified part of lung Qualified Code(s): J18.9 - Pneumonia, unspecified organism UTI (urinary tract infection) Qualifiers: Urinary tract infection type: acute cystitis Hematuria presence: without hematuria Qualified Code(s): N30.00 - Acute cystitis without hematuria Disposition: Still a Patient at [facility] Decision to Admit: Admit from ER Decision to Admit Date: 09/13/18 Decision to Admit Time: 00:16 Accepting Physician: Dr. Suarez Time Discussed w/Accepting Physician: 06:50 Condition: (2) Stable Forms: Patient Portal Access Quality - Quality Measures Quality Measures: N/A - Blood Pressure Screening Does Patient Have Any of the Following: No Blood Pressure Classification: Normal BP Reading Systolic Measurement: 111 Diastolic Measurement: 54 Screening for High Blood Pressure: < Normal BP, F/U Not Required > [G8783]
[2018-09-12 23:00] LABS: HEMATOCRIT 42.9 % (35.0-47.0); MEAN CELL VOLUME 88.5 fl (81-97); MEAN CORPUSCULAR HEMOGLOBIN 28.9 pg (27-33); MEAN CORPUSCULAR HGB CONC 32.6 g/dl (32-36); MEAN PLATELET VOLUME 9.5 fl (7.4-10.4); PLATELET COUNT 300 K/uL (130-400); RED BLOOD COUNT 4.85 M/uL (3.80-5.40); RED CELL DISTRIBUTION WIDTH 15.1 % (11.5-14.5); WHITE BLOOD COUNT W/O DIFF 5.8 K/uL (4.2-12.2)
[2018-09-12 23:14] LABS: BLOOD UREA NITROGEN 12 mg/dL (8-23); EST GLOMERULAR FILTRATION RATE 58 mL/min; GLUCOSE,RANDOM 114 mg/dL (74-109); PARTIAL THROMBOPLASTIN TIME 27.3 SECONDS (24.5-39.1); PROTHROMBIN TIME (PATIENT) 10.5 SECONDS (9.5-12.1); TOTAL PROTEIN 7.3 g/dL (6.6-8.7)
[2018-09-12 23:17] LABS: ALKALINE PHOSPHATASE 94 U/L (35-104); ALT/SGPT 13 U/L (<33); AST/SGOT 22 U/L (10.0-35.0)
[2018-09-12 23:18] LABS: BILIRUBIN,DIRECT < 0.2 mg/dL (0-0.3); LACTIC ACID 2.3 mmol/L (0.5-2.2)
[2018-09-12 23:26] LABS: ANISOCYTOSIS 1+; PLATELET ESTIMATE NORMAL (NORMAL)
[2018-09-12] MEDS ORDERED: 0.9 % SODIUM CHLORIDE 500ML 500 ML IV SCH (23:30)
[2018-09-12 23:36] LABS: THYROID STIMULATING HORMONE 0.36 uIU/mL (0.270-4.20)
[2018-09-12 23:40] LABS: URINE APPEARANCE CLEAR; URINE BILIRUBIN NEGATIVE (NEGATIVE); URINE BLOOD NEGATIVE (NEGATIVE); URINE COLOR YELLOW; URINE GLUCOSE (UA) NEGATIVE (NEGATIVE); URINE KETONE TRACE (NEGATIVE); URINE LEUKOCYTE ESTERASE SMALL (NEGATIVE); URINE NITRITE NEGATIVE (NEGATIVE); URINE PROTEIN TRACE (NEGATIVE); URINE UROBILINOGEN 0.2 E.U./dL (0.20 - 1.00)
[2018-09-12 23:44] LABS: BARBITURATE SCREEN URINE NOT DETECTED; TRICYCLIC ANTIDEPRESSANT SCRN DETECTED
[2018-09-12 23:45] LABS: AMPHETAMINE SCREEN URINE NOT DETECTED; BENZODIAZEPINE SCREEN URINE DETECTED; COCAINE SCREEN URINE NOT DETECTED; METHADONE SCREEN URINE DETECTED; METHAMPHETAMINE SCREEN NOT DETECTED; OPIATE SCREEN URINE DETECTED; OXYCODONE SCREEN URINE DETECTED; PHENCYCLIDINE SCREEN URINE NOT DETECTED; PROPOXYPHENE SCREEN URINE NOT DETECTED; THC SCREEN URINE NOT DETECTED
[2018-09-12] MEDS ORDERED: CEFTRIAXONE SODIUM 2 GM in 0.9 % SODIUM CHLORIDE 100ML 100 ML IVPB ONE (23:46)
[2018-09-12 23:50] LABS: URINE EPITHELIAL CELLS 0 - 2 (FEW); URINE MUCUS LIGHT; URINE RBC 0 - 2 (NONE SEEN); URINE WBC 16 - 20 (0-2/hpf)
[2018-09-13] MEDS ORDERED: AZITHROMYCIN 500 MG TABLET PO ONE (00:06)
[2018-09-13] MEDS ORDERED: LORAZEPAM 0.5 MG TABLET PO ONE (00:20)
[2018-09-13] MEDS ORDERED: 0.9 % SODIUM CHLORIDE 500ML 500 ML IV SCH (00:30)
[2018-09-13] MEDS ORDERED: ACETAMINOPHEN 325 MG TAB PO PRN (01:11)
[2018-09-13] MEDS ORDERED: CYANOCOBALAMIN (VITAMIN B-12) 100 MCG TABLET PO SCH (01:11)
[2018-09-13] MEDS ORDERED: EZETIMIBE 10 MG TABLET PO SCH (01:11)
[2018-09-13] MEDS ORDERED: CEFTRIAXONE SODIUM 1 GM in 0.9 % SODIUM CHLORIDE 100ML 100 ML IVPB SCH (01:11)
[2018-09-13] MEDS ORDERED: PROCHLORPERAZINE MALEATE 10 MG TABLET PO PRN (01:11)
[2018-09-13] MEDS ORDERED: PNEUM 13-VAL/PF 0.5 ML IM ONE (01:54)
[2018-09-13] MEDS ORDERED: ALBUTEROL SULFATE (0.083%) 2.5 MG/3 ML NEB INH SCH (06:00)
[2018-09-13 06:40] LABS: HEMATOCRIT 39.7 % (35.0-47.0); HEMOGLOBIN 12.8 gm/dl (11.6-16.0); MEAN CELL VOLUME 90.2 fl (81-97); MEAN CORPUSCULAR HEMOGLOBIN 29.1 pg (27-33); MEAN CORPUSCULAR HGB CONC 32.2 g/dl (32-36); MEAN PLATELET VOLUME 9.7 fl (7.4-10.4); PLATELET COUNT 253 K/uL (130-400); RED CELL DISTRIBUTION WIDTH 15.1 % (11.5-14.5); WHITE BLOOD COUNT W/O DIFF 5.6 K/uL (4.2-12.2)
[2018-09-13 06:59] LABS: ALB/GLOB RATIO 1.3 (1.1-1.8); ALBUMIN 3.5 g/dL (4.0-5.0); ALKALINE PHOSPHATASE 69 U/L (35-104); ALT/SGPT 11 U/L (<33); AST/SGOT 18 U/L (10.0-35.0); BLOOD UREA NITROGEN 9 mg/dL (8-23); CREATININE 0.9 mg/dL (0.5-0.9); EST GLOMERULAR FILTRATION RATE > 60 mL/min; GLUCOSE,RANDOM 110 mg/dL (74-109); TOTAL PROTEIN 6.2 g/dL (6.6-8.7)
[2018-09-13 07:18] LABS: ANISOCYTOSIS 1+; PLATELET ESTIMATE NORMAL (NORMAL)
[2018-09-13] MEDS ORDERED: ALBUTEROL SULFATE (0.083%) 2.5 MG/3 ML NEB INH PRN (08:00)
[2018-09-13] MEDS: IPRATROPIUM/ALBUTEROL (0.5MG/3MG) NEB INH SCH ×5 (08:14→22:58)
[2018-09-13] MEDS ORDERED: ONDANSETRON 4 MG ODT TABLET SL PRN (08:15)
[2018-09-13] MEDS: CYANOCOBALAMIN (VITAMIN B-12) 100 MCG TABLET PO SCH (09:09)
[2018-09-13] MEDS: RANITIDINE HCL 150 MG TABLET PO SCH (09:09)
[2018-09-13] MEDS: EZETIMIBE 10 MG TABLET PO SCH (09:09)
[2018-09-13] MEDS: DOCUSATE SODIUM 100 MG CAPSULE PO SCH ×2 (09:09→22:07)
[2018-09-13] MEDS: PANTOPRAZOLE SODIUM 40 MG TABLET PO SCH (09:55)
[2018-09-13] MEDS: LORAZEPAM 0.5 MG TABLET PO PRN ×2 (09:55→20:09)
[2018-09-13] MEDS: LEVOTHYROXINE SODIUM 88 MCG TABLET PO SCH (09:55)
--- NOTE | 2018-09-13 09:58 | RADIOLOGY REPORT ---
EXAM: CHEST, TWO VIEWS HISTORY: DIZZINESS, CONFUSION, SLURRED SPEECH, HISTORY OF LUNG CANCER. TECHNIQUE: Two views of the chest were obtained. Comparison: Chest radiograph 06/27/18. FINDINGS: The patient is rotated to the right. Similar appearance of right sided port catheter. The cardiac silhouette is within normal size limits. Primarily linear consolidations in the right mid lung and right lung base are likely similar from comparison radiograph. Allowing for differences in patient rotation, no definite new focal pulmonary opacities. No definable pleural fluid collection or pneumothorax. Chronic right rib deformities are noted. There is progression of a severe mid thoracic vertebral body compression deformity since prior exam. IMPRESSION: 1. NO DEFINITE ACUTE LUNG FINDINGS. CONSOLIDATIONS TO THE RIGHT LUNG ARE CHRONIC AND OVERALL SIMILAR FROM PRIOR CHEST RADIOGRAPH. 2. PROGRESSION OF A SEVERE MID THORACIC VERTEBRAL BODY COMPRESSION DEFORMITY SINCE 06/27/18 CHEST RADIOGRAPH. JOB NUMBER: [id number] [facility]
[2018-09-13] MEDS ORDERED: VIT D3 PO SCH (10:00)
[2018-09-13] MEDS ORDERED: FATTY ACIDS PO SCH (10:00)
[2018-09-13] MEDS ORDERED: DESVENLAFAXINE SUCCINATE 100 MG PO SCH (10:00)
[2018-09-13] MEDS ORDERED: CALCIUM CARB CITRATE PO SCH (10:00)
[2018-09-13] MEDS ORDERED: QUETIAPINE FUMARATE 25 MG TABLET PO SCH ×2 (10:00→22:00)
[2018-09-13] MEDS ORDERED: AZITHROMYCIN 500 MG TABLET PO SCH (10:00)
[2018-09-13] MEDS ORDERED: FISH OIL PO SCH (10:00)
[2018-09-13] MEDS ORDERED: OMEGA PO SCH (10:00)
[2018-09-13] MEDS ORDERED: NITROFURANTOIN MONO 100 MG CAPSULE PO SCH (10:00)
[2018-09-13] MEDS ORDERED: ANORO (UMECLIDINIUM & VILANTEROL) 62.5MCG/25MCG INH IH SCH (10:00)
--- NOTE | 2018-09-13 10:03 | CT SCAN REPORT ---
EXAM: NONCONTRAST CT OF THE BRAIN HISTORY: DIZZINESS, CONFUSION, SLURRED SPEECH, HISTORY OF SMALL CELL LUNG CANCER. TECHNIQUE: Noncontrast CT of the brain was obtained. Comparison: None. FINDINGS: No midline shift, mass effect, or abnormal intra or extraaxial fluid collection. No cerebral edema, focal mass or intracranial hemorrhage detected. Diffuse prominence of the ventricles and cortical sulci compatible with age related volume loss. Mild periventricular white matter hypoattenuation. No evidence of displaced calvarial fracture. The visualized paranasal sinuses and mastoid air cells are clear. IMPRESSION: 1. NO ACUTE INTRACRANIAL FINDINGS. 2. LIKELY CHRONIC FINDINGS INCLUDING DIFFUSE CEREBRAL VOLUME LOSS AND MILD CHRONIC SMALL VESSEL ISCHEMIC WHITE MATTER CHANGE. 3. A PRELIMINARY REPORT WAS PROVIDED BY [facility]. JOB NUMBER: [id number] [facility]
[2018-09-13] MEDS: (Desvenlafaxine Succinate [Pristiq] 50 MG) PO SCH ×2 (10:57→13:56)
[2018-09-13] MEDS ORDERED: TRAMADOL HCL 50 MG TABLET PO PRN (11:28)
[2018-09-13] MEDS ORDERED: ACETAMINOPHEN 325 MG TAB PO SCH (11:30)
[2018-09-13] MEDS: LIDOCAINE 5% PATCH TOP SCH (11:50)
--- NOTE | 2018-09-13 12:01 | History & Physical ---
History of Present Illness - Date of Service Date of Service for History & Physical: 09/13/18 - History of Present Illness Admitting Diagnosis: Confusion; pneumonia; UTI History of Present Illness: Narinder Betancourt is a 73 y/o female brought to ED by for a 1 day history of acute changes in behavior, acting "drunk", disoriented to time. He notes that for the past 1 month she has been much more "fuzzy" in her thinking due to recent radiation and chemo for small cell lung cancer that included radiation treatment to the brain (Jun 2018). She has also been on long-term Hycet for the past year due to bone pain from chemo and radiation. reports she was supposed to take it as needed only and usually would take it at night but has been "hitting" it throughout the day because "it makes her feel good". Three days prior to arrival was seen in follow up with Dr Espinoza, oncology, and was changed from Hycet to Ultram as needed for chronic cancer-related pain. She abruptly stopped Hycet 3 days. She also takes Seroquel and Ativan for depression , anxiety and insomnia with recent addition to Diphenhydramine night time sleep aide which she was observed taking after being advised not to by psychiatrist Fely Bal. She was recently seen in [facility] for UTI and did complete Macrobid for that. In ED CBC unremarkable, coags normal, lactic acid 2.3, troponin <0.010, TSH normal, urinalysis WBC 16-20 and small leukocyte. EKG NSR, PVC x1, LAD, no acute abnormalities. Head CT no acute process. CXR RLL old vs. new consolidation and progression of severe mid thoracic compression deformity. UDS + for opiates, oxycodone, methadone, tricyclic, benzodiazapine. IV Rocephin and IV Azithromycin initiated in ED for treatment of suspected pneumonia and UTI and further admitted. 09/13/18: Resting in bed comfortably, amb to BR with min assist. Is A&O x3 but poor historian. and her both deny being prescribed methadone or morphine based products from outside providers, does not seek care at any pain clinics. Is complaining of mid back pain. is going to bring all of her medication bottles in for nursing and pharmacy to reconcile. is also concerned her medications could have been dispensed improperly from the pharmacy. MAPS report run today. Travel Screening - Travel/Exposure Within Last 30 Days Have you traveled within the last 30 days?: No - Travel/Exposure Within Last Year Have you traveled outside the [place] in the last year?: No - Additonal Travel Details Have you been exposed to anyone with a communicable illness?: No - Travel Symptoms Symptom Screening: None Review of Systems Constitutional: Reports: As per HPI. Denies: Chills, Fever, Malaise, Night sweats, Weakness, Weight change Eyes: Reports: As per HPI. Denies: Eye discharge, Eye pain, Photophobia, Vision change ENT: Reports: As per HPI. Denies: Congestion, Dental pain, Ear pain, Epistaxis , Hearing loss, Throat pain Respiratory: Reports: As per HPI. Denies: Cough, Dyspnea, Hemoptysis, Stridor, Wheezes Cardiovascular: Reports: As per HPI. Denies: Arrhythmia, Chest pain, Dyspnea on exertion, Edema, Murmurs, Orthopnea, Palpitations, Paroxysmal nocturnal dyspnea, Rheumatic Fever, Syncope Endocrine: Reports: As per HPI. Denies: Fatigue, Heat or cold intolerance, Polydipsia, Polyuria Gastrointestinal: Reports: As per HPI. Denies: Abdominal pain, Constipation, Diarrhea, Hematemesis, Hematochezia, Melena, Nausea, Vomiting Genitourinary: Reports: As per HPI. Denies: Abnormal menses, Discharge, Dyspareunia, Dysuria, Frequency, Hematuria, Incontinence, Retention, Urgency Musculoskeletal: Reports: As per HPI, Back pain (mid thoracic spinous process). Denies: Arthralgia, Gout, Joint swelling, Myalgia, Neck pain Skin: Reports: As per HPI. Denies: Bruising, Change in color, Change in hair/ nails, Lesions, Pruritus, Rash Neurological: Reports: As per HPI. Denies: Abnormal gait, Confusion, Headache, Numbness, Paresthesias, Seizure, Tingling, Tremors, Vertigo, Weakness Psychiatric: Reports: As per HPI. Denies: Anxiety, Auditory hallucinations, Depression, Homicidal thoughts, Suicidal thoughts, Visual hallucinations Hematological/Lymphatic: Reports: As per HPI. Denies: Anemia, Blood Clots, Easy bleeding, Easy bruising, Swollen glands Past Medical History - SOCIAL HISTORY Smoking Status: Former smoker Alcohol Use: None Drug Use: None - RESPIRATORY Hx Respiratory Disorders: Yes Hx Bronchitis: Yes Hx COPD: Yes Hx Pneumonia: Yes Comment:: cancer - CARDIOVASCULAR Hx Cardio Disorders: Yes Hx Irregular Heartbeat: Yes (states irregular beats) - NEURO Hx Neuro Disorders: Yes Comment:: memory loss, recent ECTs for depression - GI Hx GI Disorders: Yes Hx Abdominal Pain: Yes (ruq) Hx Diverticulitis: Yes Hx Reflux: Yes Hx Nausea/Vomiting: Yes (at initial onset but not currently) Hx of Polyps: Yes Comment:: hx mass with resection 1975 - Hx Genitourinary Disorders: No Hx UTI: Yes - ENDOCRINE Hx Endocrine Disorders: Yes Hx Diabetes: No Hx Thyroid Disease: Yes - MUSCULOSKELETAL Hx Musculoskeletal Disorders: Yes Hx Arthritis: Yes (mostly hands and wrists) Hx Osteoporosis: Yes Comment:: lupus less frequent flare ups - PSYCH Hx Psych Problems: Yes Hx Anxiety: Yes Hx Depression: Yes (ongoing process) - HEMATOLOGY/ONCOLOGY Hx Hematology/Oncology Disorders: Yes Hx Cancer: Yes Hx Chemotherapy: No Hx Radiation Therapy: No Family Medical History Any Significant Family History?: Yes Hx HTN: Father, Grandparents Hx Stroke: Mother H&P Meds/Allergies - Allergies Allergies: Allergies Allergy/AdvReac Type Severity Reaction Status Date / Time adhesive tape Allergy Unknown BLISTERS Verified 09/12/18 23:31 amphetamine aspartate Allergy Unknown PT UNSURE Verified 09/12/18 23:31 [From Adderall] OF REACTION amphetamine sulfate Allergy Unknown PT UNSURE Verified 09/12/18 23:31 [From Adderall] OF REACTION bupropion HCl Allergy Unknown HIVES Verified 09/12/18 23:31 [From Wellbutrin] dextroamphetamine saccharate Allergy Unknown PT UNSURE Verified 09/12/18 23:31 [From Adderall] OF REACTION dextroamphetamine sulfate Allergy Unknown PT UNSURE Verified 09/12/18 23:31 [From Adderall] OF REACTION ibuprofen Allergy Unknown HIVES Verified 09/12/18 23:31 ketorolac Allergy Unknown HIVES Verified 09/12/18 23:31 ketorolac tromethamine Allergy Unknown HIVES Verified 09/12/18 23:31 [From Toradol] levocetirizine Allergy Unknown PT UNSURE Verified 09/12/18 23:31 dihydrochloride OF REACTION [From Xyzal] mirtazapine [From Remeron] Allergy Unknown PT UNSURE Verified 09/12/18 23:31 OF REACTION naproxen Allergy Unknown HIVES Verified 09/12/18 23:31 NSAIDS (Non-Steroidal Allergy Unknown HIVES Verified 09/12/18 23:31 Anti-Inflamma prednisone Allergy Unknown ANAPHYLAXIS Verified 09/12/18 23:31 Pyrazoles Allergy Unknown HIVES Verified 09/12/18 23:31 Salicylates * Allergy Unknown HIVES Verified 09/12/18 23:31 [Salicylates *RETIRED-12/15/15] alendronate sodium Allergy PT UNSURE Verified 09/12/18 23:31 OF REACTION hydromorphone HCl Allergy HIVES Verified 09/12/18 23:31 [From Dilaudid] methotrexate Allergy DIARRHEA Verified 09/12/18 23:31 oxaprozin [From Daypro] Allergy HIVES Verified 09/12/18 23:31 quetiapine fumarate Allergy HIVES Verified 09/12/18 23:31 [From Seroquel] sulfasalazine Allergy HIVES Verified 09/12/18 23:31 [From Azulfidine] venlafaxine HCl Allergy HIVES Verified 09/12/18 23:31 [From Effexor] - Home Medications Home Medications Medication Instructions Recorded Confirmed Last Taken Diphenhydramine HCl [Allergy] 25 mg PO Q6H PRN 09/12/18 09/12/18 Unknown Docusate Sodium [Colace] 100 mg PO BID 09/12/18 09/12/18 Unknown Quetiapine Fumarate [Seroquel] 25 mg PO DAILY 09/12/18 09/13/18 Unknown Quetiapine Fumarate [Seroquel] 50 mg PO QHS 09/12/18 09/12/18 Unknown Tramadol HCl [Ultram] 50 mg PO Q8H PRN 09/12/18 09/12/18 Unknown - Active Medications Active Medications: Current Medications Acetaminophen (Tylenol 325mg) 650 mg PO Q6H [facility] Albuterol Sulfate (Albuterol Sulfate) 2.5 mg INH RESP.Q2H PRN PRN Reason: DIFFICULTY IN BREATHING Albuterol/Ipratropium (Duoneb) 3 ml INH RESP.Q4H.[facility] Last Admin: 09/13/18 09:37 Dose: 3 ml Cyanocobalamin (Vitamin B-12) 100 mcg PO DAILY [facility] Last Admin: 09/13/18 09:09 Dose: 100 mcg Diphenoxylate HCl/Atropine (Lomotil) 1 udtab PO DAILY PRN PRN Reason: DIARRHEA Docusate Sodium (Colace) 100 mg PO BID [facility] Last Admin: 09/13/18 09:09 Dose: 100 mg Ezetimibe (Zetia) 10 mg PO DAILY [facility] Last Admin: 09/13/18 09:09 Dose: 10 mg Enoxaparin Sodium (Lovenox) 40 mg SQ DAILY [facility] Sodium Chloride () 1,000 mls @ 125 mls/hr IV .Q8H PRN PRN Reason: LARGE VOLUME IV CEFTRIAXONE 1GM/50ML BAG (Ceftriaxone 1 Gm-D5w Bag) 1 gm in 50 mls @ 100 mls/ hr IVPB Q24H [facility] Levothyroxine Sodium (Synthroid) 88 mcg PO DAILYTHY [facility] Last Admin: 09/13/18 09:55 Dose: 88 mcg Lidocaine (Lidoderm) 1 each TOP DAILY [facility] Lorazepam (Ativan) 1 mg PO TID PRN PRN Reason: ANXIETY Last Admin: 09/13/18 09:55 Dose: 1 mg Melatonin (Melatonin) 10 mg PO QHS PRN PRN Reason: INSOMNIA (Desvenlafaxine Succinate [Pristiq] 50 Mg) 50 mg PO DAILY [facility] Last Admin: 09/13/18 10:57 Dose: Not Given Ondansetron HCl (Zofran Odt) 8 mg SL Q8H PRN PRN Reason: NAUSEA Pantoprazole Sodium (Protonix) 80 mg PO DAILYAC [facility] Last Admin: 09/13/18 09:55 Dose: 80 mg Prochlorperazine Maleate (Compazine) 10 mg PO Q6H PRN PRN Reason: NAUSEA Quetiapine Fumarate (Seroquel) 50 mg PO QHS [facility] Ranitidine HCl (Zantac) 150 mg PO DAILY [facility] Last Admin: 09/13/18 09:09 Dose: 150 mg Tramadol HCl (Ultram) 50 mg PO Q8H PRN PRN Reason: PAIN - MOD TO SEVERE (5-10) Physical Exam - Vital Signs Vital Signs: Vital Signs - Last 24 Hrs Temp Pulse Pulse Resp BP BP Pulse Ox 09/13/18 09:37 98 H 18 99 09/13/18 08:00 98.4 F 99 H 18 144/72 97 09/13/18 07:49 20 09/13/18 06:41 86 16 100 09/13/18 04:00 98.1 F 90 16 129/82 96 09/13/18 01:11 91 H 18 143/79 95 09/13/18 00:35 95/72 09/13/18 00:33 99.5 F 122 H 20 130/94 100 09/13/18 00:16 92 H 104/70 09/13/18 00:06 95 H 18 114/73 96 09/12/18 23:02 96 H 18 94/71 96 09/12/18 22:38 98.1 F 101 H 24 111/54 96 09/12/18 22:36 98.1 F 101 H 24 111/54 96 - General General Appearance: Alert, Oriented x3, Cooperative, No acute distress - Head Head exam: Normal inspection Head exam detail: Other (alopecia) - Eye Eye exam: Normal appearance, PERRL, EOMI. negative: Conjunctival injection, Nystagmus Pupils: Normal accommodation - ENT ENT exam: Normal exam, Mucous membranes moist, Normal external ear exam, Normal orophraynx, TM's normal bilaterally. negative: Mucous membranes dry Ear exam: Normal external inspection. negative: External canal tenderness Nasal Exam: Normal inspection. negative: Discharge, Sinus tenderness Mouth exam: Normal external inspection, Tongue normal Teeth exam: Normal inspection. negative: Dental caries Throat exam: Normal inspection. negative: Tonsillar erythema, Tonsillomegaly, Tonsillar exudate - Neck Neck exam: Normal inspection, Full ROM. negative: Lymphadenopathy, Meningismus , Tenderness - Respiratory Respiratory exam: Normal lung sounds bilaterally. negative: Accessory muscle use, Chest wall tenderness, Respiratory distress - Cardiovascular Cardiovascular Exam: Normal rhythm, Normal heart sounds Peripheral Pulses: 2+: Radial (R), Radial (L), Dorsalis Pedis (R), Dorsalis Pedis (L) - GI/Abdominal GI/Abdominal exam: Soft, Normal bowel sounds. negative: Tenderness - Rectal Rectal exam: Deferred - exam: Deferred - Extremities Extremities exam: Normal inspection, Full ROM, Normal capillary refill. negative: Calf tenderness, Pedal edema, Tenderness - Back Back exam: Reports: Normal inspection, Full ROM, Paraspinal tenderness (thoracic ). Denies: Muscle spasm, Rash noted, Tenderness - Neurological Neurological exam: Alert, CN II-XII intact, Normal gait, Oriented X3, Reflexes normal. negative: Motor sensory deficit - Psychiatric Psychiatric exam: Normal affect, Normal mood - Skin Skin exam: Dry, Intact, Normal color, Warm Results - Labs Result Diagrams: 09/13/18 06:20 09/13/18 06:20 Labs Last 24 Hours: Laboratory Results - last 24 hr 09/12/18 09/12/18 09/12/18 22:55 22:55 22:55 WBC 5.8 Corrected WBC RBC 4.85 Hgb 14.0 Hct 42.9 MCV 88.5 MCH 28.9 MCHC 32.6 RDW 15.1 H Plt Count 300 MPV 9.5 Gran % Neutrophils % 54.0 Band Neutrophils % 2.0 Lymphocytes % Monocytes % Eosinophils % Not Reportable Basophils % Not Reportable Lymphocytes 22.0 Monocytes 21.0 H Platelet Estimate Normal Anisocytosis 1+ Eosinophil Count 1.0 PT 10.5 INR 1.0 APTT 27.3 D-Dimer 0.55 Sodium 140 Potassium 3.6 Chloride 104 Carbon Dioxide 21.0 L Anion Gap 15.0 BUN 12 Creatinine 1.0 H Estimated GFR 58 Random Glucose 114 H Lactic Acid 2.3 H Calcium 9.6 Total Bilirubin 0.20 Direct Bilirubin < 0.2 AST 22 ALT 13 Alkaline Phosphatase 94 Troponin T Total Protein 7.3 Albumin 4.0 Globulin Albumin/Globulin Ratio Procalcitonin TSH Urine Color Urine Appearance Urine pH Ur Specific [place] Urine Protein Urine Glucose (UA) Urine Ketones Urine Blood Urine Nitrite Urine Bilirubin Urine Urobilinogen Ur Leukocyte Esterase Urine RBC Urine WBC Ur Epithelial Cells Urine Mucus Urine Opiates Screen Ur Oxycodone Screen Urine Methadone Screen Ur Propoxyphene Screen Ur Barbituates Screen Ur Tricyclics Screen Ur Phencyclidine Scrn Ur Amphetamine Screen U Methamphetamines Scrn U Benzodiazepines Scrn Urine Cocaine Screen Urine Cannabis Screen 09/12/18 09/12/18 09/12/18 22:55 23:30 23:30 WBC Corrected WBC RBC Hgb Hct MCV MCH MCHC RDW Plt Count MPV Gran % Neutrophils % Band Neutrophils % Lymphocytes % Monocytes % Eosinophils % Basophils % Lymphocytes Monocytes Platelet Estimate Anisocytosis Eosinophil Count PT INR APTT D-Dimer Sodium Potassium Chloride Carbon Dioxide Anion Gap BUN Creatinine Estimated GFR Random Glucose Lactic Acid Calcium Total Bilirubin Direct Bilirubin AST ALT Alkaline Phosphatase Troponin T < 0.010 Total Protein Albumin Globulin Albumin/Globulin Ratio Procalcitonin TSH 0.36 Urine Color Yellow Urine Appearance Clear Urine pH 5.5 Ur Specific [place] 1.025 Urine Protein Trace H Urine Glucose (UA) Negative Urine Ketones Trace H Urine Blood Negative Urine Nitrite Negative Urine Bilirubin Negative Urine Urobilinogen 0.2 Ur Leukocyte Esterase Small H Urine RBC 0 - 2 Urine WBC 16 - 20 Ur Epithelial Cells 0 - 2 Urine Mucus Light Urine Opiates Screen Detected Ur Oxycodone Screen Detected Urine Methadone Screen Detected Ur Propoxyphene Screen Not detected Ur Barbituates Screen Not detected Ur Tricyclics Screen Detected Ur Phencyclidine Scrn Not detected Ur Amphetamine Screen Not detected U Methamphetamines Scrn Not detected U Benzodiazepines Scrn Detected Urine Cocaine Screen Not detected Urine Cannabis Screen Not detected 09/13/18 09/13/18 09/13/18 01:11 06:00 06:20 WBC 5.6 Corrected WBC Purchasing Agent RBC 4.40 Hgb 12.8 Hct 39.7 MCV 90.2 MCH 29.1 MCHC 32.2 RDW 15.1 H Plt Count 253 MPV 9.7 Gran % Purchasing Agent Neutrophils % 53.0 Band Neutrophils % 1.0 Lymphocytes % Purchasing Agent Monocytes % Purchasing Agent Eosinophils % Not Reportable Basophils % Not Reportable Lymphocytes 30.0 Monocytes 16.0 H Platelet Estimate Normal Anisocytosis 1+ Eosinophil Count PT INR APTT D-Dimer Sodium Potassium Chloride Carbon Dioxide Anion Gap BUN Creatinine Estimated GFR Random Glucose Lactic Acid Calcium Total Bilirubin Direct Bilirubin AST ALT Alkaline Phosphatase Troponin T Total Protein Albumin Globulin Albumin/Globulin Ratio Procalcitonin 0.046 TSH Urine Color Urine Appearance Urine pH Ur Specific [place] Urine Protein Urine Glucose (UA) Urine Ketones Urine Blood Urine Nitrite Urine Bilirubin Urine Urobilinogen Ur Leukocyte Esterase Urine RBC Urine WBC Ur Epithelial Cells Urine Mucus Urine Opiates Screen Ur Oxycodone Screen Urine Methadone Screen Ur Propoxyphene Screen Ur Barbituates Screen Ur Tricyclics Screen Ur Phencyclidine Scrn Ur Amphetamine Screen U Methamphetamines Scrn U Benzodiazepines Scrn Urine Cocaine Screen Urine Cannabis Screen 09/13/18 06:20 WBC Corrected WBC RBC Hgb Hct MCV MCH MCHC RDW Plt Count MPV Gran % Neutrophils % Band Neutrophils % Lymphocytes % Monocytes % Eosinophils % Basophils % Lymphocytes Monocytes Platelet Estimate Anisocytosis Eosinophil Count PT INR APTT D-Dimer Sodium 142 Potassium 3.5 Chloride 108 H Carbon Dioxide 22.0 Anion Gap 12.0 BUN 9 Creatinine 0.9 Estimated GFR > 60 Random Glucose 110 H Lactic Acid Calcium 8.7 L Total Bilirubin 0.20 Direct Bilirubin AST 18 ALT 11 Alkaline Phosphatase 69 Troponin T Total Protein 6.2 L Albumin 3.5 L Globulin 2.7 Albumin/Globulin Ratio 1.3 Procalcitonin TSH Urine Color Urine Appearance Urine pH Ur Specific [place] Urine Protein Urine Glucose (UA) Urine Ketones Urine Blood Urine Nitrite Urine Bilirubin Urine Urobilinogen Ur Leukocyte Esterase Urine RBC Urine WBC Ur Epithelial Cells Urine Mucus Urine Opiates Screen Ur Oxycodone Screen Urine Methadone Screen Ur Propoxyphene Screen Ur Barbituates Screen Ur Tricyclics Screen Ur Phencyclidine Scrn Ur Amphetamine Screen U Methamphetamines Scrn U Benzodiazepines Scrn Urine Cocaine Screen Urine Cannabis Screen - Imaging and Cardiology Chest x-ray Status: Report reviewed (no acute process, chronic findings compared to previous ) CT scan - head Status: Report reviewed (no acute process, + small vessel ischemic changes) VTE H&P Assessment - Risk for VTE Risk for VTE: Yes Risk Level: Moderate Risk Assessment Date: 09/13/18 Risk Assessment Time: 12:04 VTE Orders Placed or Will Be Placed: Yes Plan - Inpatient Certification Inpatient Certification: Admit to inpatient care: Based on my medical assessment, after consideration of patient's risk factors (age, co-morbidities and patient presenting symptoms and acuity), I expect that this patient will remain in the hospital greater than or equal to two midnights and that the services needed warrant inpatient care because: Patient Risk Factors: [] Estimated length of stay: [] The patient may reasonably be expected to be discharged or transferred to a hospital within 96 hours after admission to [facility]. Services needed: [] Post hospital care (if known): [] I certify that my determination is in accordance with my understanding of Medicare requirements for reasonable and necessary inpatient services. - Detailed Diagnosis and Plan (1) UTI (urinary tract infection) Current Visit: Yes Status: Acute Qualifiers: Urinary tract infection type: acute cystitis Hematuria presence: without hematuria Qualified Code(s): N30.00 - Acute cystitis without hematuria Base Code: N39.0 - URINARY TRACT INFECTION, SITE NOT SPECIFIED Comment: 09/13/18 - Urinalysis and urine micro done in ED, WBC 16-20, small leukocytes - Urine sent to lab for culture - Urine culture from 09/07 reviewed- mixed [place] - Continue Rocephin 1gm BID - 0.9% NS @125ml/hr (2) Confusion Current Visit: Yes Status: Acute Base Code: R41.0 - DISORIENTATION, UNSPECIFIED Comment: 09/13/18 - Head CT in ED with no acute changes, + small vessel ischemic changes - Acute mental status changes likely multifactoal including abrupt cessation of long-term use narcotic medication, suspected UTI, sedating medications not prescribed found in UDS, chronic small vessel ischemic changes on head CT, and recent chemotherapy and radiation therapy for small cell lung cancer, and history of biplar depression with history of ECT- last 2 years ago. - to bring all of her prescription bottles for nursing to reconcile - IV hydration (3) Pneumonia Current Visit: Yes Status: Acute Qualifiers: Pneumonia type: due to unspecified organism Laterality: right Lung location: unspecified part of lung Qualified Code(s): J18.9 - Pneumonia, unspecified organism Base Code: J18.9 - PNEUMONIA, UNSPECIFIED ORGANISM Comment: 09/13/18 - Final CXR report from ED shows RLL consolidiation that is chronic, no change from previous - Additional finding of progressive severe mid thoracic compression deformity - Procalcitonin 0.046 - Will DC Azithromycin (4) Chronic pain Current Visit: Yes Status: Acute Base Code: G89.29 - OTHER CHRONIC PAIN Comment: 09/13/18 - Progression of severe mid thoracic compression deformity - Concern with using narcotic medication as UDS results positive for narcotic medications she is not prescribed - Will manage with Tylenol 650mg Q6hr, lidoderm patch, and Ultram PRN for breakthrough pain - PT/OT eval (5) Closed compression fracture of thoracic vertebra Current Visit: Yes Status: Acute Base Code: S22.000A - WEDGE COMPRESSION FRACTURE OF UNSP THORACIC VERTEBRA, INIT Comment: 09/13/18 - Progression of severe mid thoracic compression deformity - Concern with using narcotic medication as UDS results positive for narcotic medications she is not prescribed - Will manage with Tylenol 650mg Q6hr, lidoderm patch, and Ultram PRN for breakthrough pain - PT/OT eval (6) DVT prophylaxis Current Visit: Yes Status: Acute Base Code: [id number] - Comment: 09/13/18 - Lovenox 40mg QD - Nursing to encourage ambulation (7) Full code status Current Visit: Yes Status: Acute Base Code: Z78.9 - OTHER SPECIFIED HEALTH STATUS Comment: 09/13/18
--- NOTE | 2018-09-13 15:12 | Rehab Evaluation ---
Patient Information - Patient Information Diagnosis: Confusion, pneumonia, UTI Ordered Treatment: PT Evaluate and Treat Status: Initial Evaluation Surgery: No History: Detail (Pt presented to ED 09/12/18 due to slurred speech, confusion, and unsteadiness. Admitted for further medical evaluation and treatment. Pt reports that she has been experiencing pneumonia since at least June 2018. She completed chemotherapy for small cell lung cancer in about January 2018 and is in remission as of June 2018.) Past Med/Angelica Hx Detail: Detail Past Medical/Surgical Hx: PAST MEDICAL/SURGICAL HISTORY Past Surgical History hyst, colon resection(mass), D/C mult. c-scope bassam. PMH - Respiratory Hx Respiratory Disorders Yes Hx Bronchitis Yes Hx Chronic Obstructive Yes Pulmonary Disease (COPD) Hx Pneumonia Yes Comment: cancer PMH - Cardiovascular Hx Cardiovascular Disorders Yes Hx Irregular Heartbeat Yes: states irregular beats Hx Heart Murmur Yes PMH - Neuro Hx Neurological Disorders Yes Hx Dizziness Yes Comment: memory loss, recent ECTs for depression PMH - GI Hx Gastrointestinal Disorders Yes Hx Abdominal Pain Yes: ruq Hx Diverticulitis Yes Hx Gastroesophageal Reflux Yes Hx Nausea/Vomiting Yes: at initial onset but not currently Comment: hx mass with resection 1975 PMH - Hx Genitourinary Disorders No Patient No Hx Urinary Tract Infection Yes PMH - Endocrine Hx Endocrine Disorders Yes Hx Diabetes No Hx Thyroid Disease Yes PMH - Musculoskeletal Hx Musculoskeletal Disorders Yes Hx Arthritis Yes: mostly hands and wrists Hx Osteoporosis Yes Comment: lupus less frequent flare ups PMH - Psych Hx Psychiatric Problems Yes Hx Anxiety Yes Hx Depression Yes: ongoing process PMH - Hematology/Oncology Hx Hematology/Oncology Yes Disorders Hx Cancer Yes Hx Chemotherapy No Hx Radiation Therapy No Premorbid Status: Detail (Pt reports that she was independent with all self- care at home, although she notes that would help w/showering. She states that she was not using any assistive device for ambulation, but admits to having had 5-6 falls over the past 6 months. She describes just falling w/o any dizziness or sensation of unsteadiness, sometimes with getting up from sitting, sometimes just walking, once going up stairs.) Social History: Detail (Pt lives w/her in a single story home w/a basement. She states she does not need to use the basement for anything particular; laundry is on main floor. Her does the cooking and cleaning. She has tub/shower combination and shower chair.) Precautions: [place], Fall - Time With Patient Total Time Spent With Patient (Min): 25 Treatment Procedures: Detail (PT Evaluation) Subjective Information - Subjective Information Per Patient (Pt receiving respiratory treatment upon arrival; cooperative for interview and evaluation. Denies pain at this time. Appears somewhat restless. ) Objective Data - Pain Pain Present: No - Mental Status Patient Orientation: Oriented x3 - Visual Perception Appears within normal limits for therapeutic activities - ROM Within normal limits (AROM is grossly WNL in hips, knees, and ankles B.) - Strength/Tone Within normal limits (Pt exhibits 4/5 to 4+/5 strength in major muscle groups of B LE's.) - Coordination Appears within normal limits for therapeutic activities - Bed Mobility Independent - Transfers Independent (Moves somewhat quickly.) - Balance Balance Sitting: Good Balance Standing: Good (With standard walker. Will formally assess balance at next session.) - Sensation Intact - Gait Detail (Ambulates w/standard walker to/from bathroom w/SBA/supervision.) Therapy Assessment - Therapy Assessment Detail (Pt exhibits good LE strength and good mobility, but may be experiencing deconditioning due to chronicity of illness and has history of falls. She is likely to benefit from inpatient physical therapy.) Patient Education - Patient Education Teaching Topic: Precautions Response: Reinforcement Needed Teaching Method: Discussion Teaching Recipient: Patient Barriers To Learning: None Problem List - Problem List Physical Therapy Problem List: Detail (1. History of falls. 2. Activity intolerance. 3. Needs formal balance assessment.) Goals - Goals Physical Therapy Goals: 1. Pt will complete formal balance assessment in order to make safety recommendations. 2. Pt will tolerate 20 minutes of therapeutic activity w/o undue fatigue. 3. Pt will safely and independently ambulate over household surfaces with or without assistive device. Prognosis - Prognosis Good Plan - Plan Physical Therapy Plan: Pt will be seen 1-2 times/day M-F for balance and gait training, therapeutic exercise to facilitate improved activity tolerance and safe return to home environment.
[2018-09-13] MEDS: DIPHENOXYLATE HCL/ATROP 2.5/0.025MG TABLET PO PRN (15:19)
[2018-09-13] MEDS: ACETAMINOPHEN 325 MG TAB PO SCH (17:21)
[2018-09-13] MEDS: 0.9 % SODIUM CHLORIDE 1000ML 1,000 ML IV PRN (17:22)
[2018-09-13] MEDS ORDERED: CEFTRIAXONE 1GM/50ML BAG 1 GM/50 ML BAG IVPB SCH (22:00)
[2018-09-13] MEDS ORDERED: REMOVE PATCH 1 EACH MISC TD SCH (22:00)
[2018-09-13] MEDS ORDERED: MELATONIN 5 MG TABLET PO PRN (22:00)
[2018-09-14] MEDS: 0.9 % SODIUM CHLORIDE 1000ML 1,000 ML IV PRN (02:24)
[2018-09-14] MEDS: ACETAMINOPHEN 325 MG TAB PO SCH ×2 (02:26→06:44)
[2018-09-14] MEDS: PANTOPRAZOLE SODIUM 40 MG TABLET PO SCH (06:43)
[2018-09-14] MEDS: LEVOTHYROXINE SODIUM 88 MCG TABLET PO SCH (06:43)
[2018-09-14] MEDS: LORAZEPAM 0.5 MG TABLET PO PRN (06:44)
[2018-09-14] MEDS: DIPHENOXYLATE HCL/ATROP 2.5/0.025MG TABLET PO PRN (06:47)
[2018-09-14] MEDS: IPRATROPIUM/ALBUTEROL (0.5MG/3MG) NEB INH SCH ×2 (07:24→09:29)
--- NOTE | 2018-09-14 09:09 | Physician Progress Note ---
Subjective - Date Date of Physician Progress Note: 09/14/18 - Subjective Subjective Comment: No new nursing concerns over the past 24 hours. Has had intermittent diarrhea which is chronic since recent chemo and radiation therapy, responds well to Lomotil. Pain has been controlled with the use of scheduled tylenol, lidoderm patch and PRN ultram. Has continued to ambulate to BR with SBA. PT eval yesterday, recommend use of walker with ambulation, reassessment today for home needs. Objective - Vital Signs Vital Signs: Vital Signs - Last 24 Hrs Temp Pulse Pulse Resp BP BP Pulse Ox 09/14/18 08:09 107 H 18 09/14/18 06:00 98.1 F 107 H 22 170/94 94 L 09/14/18 00:00 98.2 F 94 H 22 159/84 94 L 09/13/18 20:00 98.0 F 110 H 22 154/92 96 09/13/18 18:13 98 H 16 99 09/13/18 17:15 98.9 F 98 H 18 131/84 97 09/13/18 14:11 86 20 09/13/18 12:00 99.1 F 104 H 16 118/65 98 09/13/18 11:23 98.4 F 144/72 09/13/18 09:37 98 H 18 99 - General General Appearance: Alert, Oriented x3, Cooperative, No acute distress - Head Head exam: Normal inspection Head exam detail: Other (alopecia) - Eye Eye exam: Normal appearance, PERRL, EOMI. negative: Conjunctival injection, Nystagmus Pupils: Normal accommodation - ENT ENT exam: Normal exam, Mucous membranes moist, Normal external ear exam, Normal orophraynx, TM's normal bilaterally. negative: Mucous membranes dry Ear exam: Normal external inspection. negative: External canal tenderness Nasal Exam: Normal inspection. negative: Discharge, Sinus tenderness Mouth exam: Normal external inspection, Tongue normal Teeth exam: Normal inspection. negative: Dental caries Throat exam: Normal inspection. negative: Tonsillar erythema, Tonsillomegaly, Tonsillar exudate - Neck Neck exam: Normal inspection, Full ROM. negative: Lymphadenopathy, Meningismus , Tenderness - Respiratory Respiratory exam: Normal lung sounds bilaterally. negative: Accessory muscle use, Chest wall tenderness, Respiratory distress - Cardiovascular Cardiovascular Exam: Normal rhythm, Normal heart sounds Peripheral Pulses: 2+: Radial (R), Radial (L), Dorsalis Pedis (R), Dorsalis Pedis (L) - GI/Abdominal GI/Abdominal exam: Soft, Normal bowel sounds. negative: Tenderness - Rectal Rectal exam: Deferred - exam: Deferred - Extremities Extremities exam: Normal inspection, Full ROM, Normal capillary refill. negative: Calf tenderness, Pedal edema, Tenderness - Back Back exam: Reports: Normal inspection, Full ROM, Paraspinal tenderness (thoracic ). Denies: Muscle spasm, Rash noted, Tenderness - Neurological Neurological exam: Alert, CN II-XII intact, Normal gait, Oriented X3, Reflexes normal. negative: Motor sensory deficit - Psychiatric Psychiatric exam: Normal affect, Normal mood - Skin Skin exam: Dry, Intact, Normal color, Warm Assessment and Plan - Assessment and Plan (1) UTI (urinary tract infection) Current Visit: Yes Status: Acute Qualifiers: Urinary tract infection type: acute cystitis Hematuria presence: without hematuria Qualified Code(s): N30.00 - Acute cystitis without hematuria Base Code: N39.0 - URINARY TRACT INFECTION, SITE NOT SPECIFIED Comment: 09/14/18 - Asymptomatic today - Urinalysis and urine micro done in ED, WBC 16-20, small leukocytes - Urine culture pending - Urine culture from 09/07 reviewed- mixed [place] - Change Rocephin to Omnicef 300mg BID x 10 days upon discharge (2) Confusion Current Visit: Yes Status: Acute Base Code: R41.0 - DISORIENTATION, UNSPECIFIED Comment: 09/14/18 - Significant cognitive improvement over night - Head CT in ED with no acute changes, + small vessel ischemic changes - Acute mental status changes likely multifactoal including abrupt cessation of long-term use narcotic medication, suspected UTI, sedating medications not prescribed found in UDS, chronic small vessel ischemic changes on head CT, and recent chemotherapy and radiation therapy for small cell lung cancer, and history of biplar depression with history of ECT- last 2 years ago. - to bring all of her prescription bottles for nursing to reconcile- no concerns with medications that were presented and reviewed - Seroquel use can cause a UDS to have a false positive methadone (3) Pneumonia Current Visit: Yes Status: Acute Qualifiers: Pneumonia type: due to unspecified organism Laterality: right Lung location: unspecified part of lung Qualified Code(s): J18.9 - Pneumonia, unspecified organism Base Code: J18.9 - PNEUMONIA, UNSPECIFIED ORGANISM Comment: 09/14/18 - Final CXR report from ED shows RLL consolidiation that is chronic, no change from previous - Additional finding of progressive severe mid thoracic compression deformity - Procalcitonin 0.046 - No new development of fever or cough during stay (4) Chronic pain Current Visit: Yes Status: Acute Base Code: G89.29 - OTHER CHRONIC PAIN Comment: 09/14/18 - Progression of severe mid thoracic compression deformity - Concern with using narcotic medication as UDS results positive for narcotic medications she is not prescribed - Significant improvement of thoracic pain with with Tylenol 650mg Q6hr, lidoderm patch, and Ultram PRN for breakthrough pain - PT/OT eval recommends walker with ambulation and home PT/OT (5) Closed compression fracture of thoracic vertebra Current Visit: Yes Status: Acute Base Code: S22.000A - WEDGE COMPRESSION FRACTURE OF UNSP THORACIC VERTEBRA, INIT Comment: 09/14/18 - Progression of severe mid thoracic compression deformity - Concern with using narcotic medication as UDS results positive for narcotic medications she is not prescribed - Significant improvement of thoracic pain with with Tylenol 650mg Q6hr, lidoderm patch, and Ultram PRN for breakthrough pain - PT/OT eval recommends walker with ambulation and home PT/OT (6) DVT prophylaxis Current Visit: Yes Status: Acute Base Code: [id number] - Comment: 09/14/18 - Lovenox 40mg QD during stay - Nursing to encourage ambulation (7) Full code status Current Visit: Yes Status: Acute Base Code: Z78.9 - OTHER SPECIFIED HEALTH STATUS Comment: 09/14/18 Results - Labs Result Diagrams: 09/13/18 06:20 09/13/18 06:20 Labs Last 24 Hours: Laboratory Results - last 24 hr 09/13/18 06:00 Procalcitonin 0.046 DVT/PE Assessment - Risk for VTE Risk for VTE: No Risk Level: Moderate Risk Assessment Date: 09/13/18 Risk Assessment Time: 12:04 VTE Orders Placed or Will Be Placed: Yes - Active Medicaitons Current Medications: Current Medications Acetaminophen (Tylenol 325mg) 650 mg PO Q6HR RYLIE Last Admin: 09/14/18 06:44 Dose: 650 mg Albuterol Sulfate (Albuterol Sulfate) 2.5 mg INH RESP.Q2H PRN PRN Reason: DIFFICULTY IN BREATHING Albuterol/Ipratropium (Duoneb) 3 ml INH RESP.Q4H.[facility] Last Admin: 09/14/18 07:24 Dose: Not Given Cyanocobalamin (Vitamin B-12) 100 mcg PO DAILY [facility] Last Admin: 09/13/18 09:09 Dose: 100 mcg Diphenoxylate HCl/Atropine (Lomotil) 1 udtab PO DAILY PRN PRN Reason: DIARRHEA Last Admin: 09/14/18 06:47 Dose: 1 udtab Docusate Sodium (Colace) 100 mg PO BID [facility] Last Admin: 09/13/18 22:07 Dose: 100 mg Ezetimibe (Zetia) 10 mg PO DAILY [facility] Last Admin: 09/13/18 09:09 Dose: 10 mg Enoxaparin Sodium (Lovenox) 40 mg SQ DAILY [facility] CEFTRIAXONE 1GM/50ML BAG (Ceftriaxone 1 Gm-D5w Bag) 1 gm in 50 mls @ 100 mls/ hr IVPB Q24H [facility] Last Infusion: 09/13/18 22:40 Dose: Infused Levothyroxine Sodium (Synthroid) 88 mcg PO DAILYTHY [facility] Last Admin: 09/14/18 06:43 Dose: 88 mcg Lidocaine (Lidoderm) 1 each TOP DAILY [facility] Last Admin: 09/13/18 11:50 Dose: 1 each Lorazepam (Ativan) 1 mg PO TID PRN PRN Reason: ANXIETY Last Admin: 09/14/18 06:44 Dose: 1 mg Melatonin (Melatonin) 10 mg PO QHS PRN PRN Reason: INSOMNIA Miscellaneous (Remove Patch) 1 each TD QHS [facility] Last Admin: 09/13/18 22:08 Dose: 1 each (Desvenlafaxine Succinate [Pristiq] 100 Mg) 100 mg PO DAILY [facility] Ondansetron HCl (Zofran Odt) 8 mg SL Q8H PRN PRN Reason: NAUSEA Pantoprazole Sodium (Protonix) 80 mg PO DAILYAC [facility] Last Admin: 09/14/18 06:43 Dose: 80 mg Prochlorperazine Maleate (Compazine) 10 mg PO Q6H PRN PRN Reason: NAUSEA Quetiapine Fumarate (Seroquel) 50 mg PO QHS [facility] Last Admin: 09/13/18 22:07 Dose: 50 mg Ranitidine HCl (Zantac) 150 mg PO DAILY [facility] Last Admin: 09/13/18 09:09 Dose: 150 mg Tramadol HCl (Ultram) 50 mg PO Q8H PRN PRN Reason: PAIN - MOD TO SEVERE (5-10) AMI Plan - Labs Result Diagrams: 09/13/18 06:20 09/13/18 06:20
--- NOTE | 2018-09-14 09:51 | Physical Therapy Tx Note ---
Physical Therapy Tx Note - Treatment Note Tolerated: Fair Total Time Spent With Patient: 20 Physical Therapy Tx Note: Detail (The patient was sleeping but easily roused when PT arrived. The patient ambulated without device to bathroom with CG/ supervision, due to unsteady gait pattern with occasional stagger steps. The patient's balance was tested using [place]etti Assessment Tool and she scored 16/28 which is in the high risk for falling category. The patient ambulated on 3 stairs with use of one railing with supervision for safety, step to method going down stairs and reciprocal pattern going up stairs. Patient's was present for the end of PT session. Patient's stated the patient had a walker with 2 wheels at home. The patient's O2 sat level was 90 after ambulating on stairs. PT recommends that patient use walker at home at all times due to unsteady gait pattern and Home PT to assess the patient's safety in the home environment and for balance exercises due to at risk for falling category as indicated by the Tinetti Assessment Tool.) Physical Therapy Problem List: Detail (1. History of falls. 2. Activity intolerance. 3. Needs formal balance assessment.) Physical Therapy Goals: 1. Pt will complete formal balance assessment in order to make safety recommendations.(Goal Met). 2. Pt will tolerate 20 minutes of therapeutic activity w/o undue fatigue.(Goal Met). 3. Pt will safely and independently ambulate over household surfaces with or without assistive device. (Goal Met) Physical Therapy Plan: The patient is discharging from [facility] to home. Home PT is recommended.
[2018-09-14] MEDS ORDERED: (Desvenlafaxine Succinate [Pristiq] 100 MG) PO SCH (10:00)
[2018-09-14] MEDS ORDERED: ENOXAPARIN 40 MG/0.4 ML SYR SQ SCH (10:00)
[2018-09-14] MEDS: RANITIDINE HCL 150 MG TABLET PO SCH (10:13)
[2018-09-14] MEDS: EZETIMIBE 10 MG TABLET PO SCH (10:13)
[2018-09-14] MEDS: CYANOCOBALAMIN (VITAMIN B-12) 100 MCG TABLET PO SCH (10:14)
[2018-09-14] MEDS: LIDOCAINE 5% PATCH TOP SCH (10:14)
--- NOTE | 2018-09-14 10:30 | Discharge Summary ---
Providers Discharge Summary Date: 09/14/18 Date of admission: 09/13/18 00:52 Attending physician: EMANUEL BURRIS Primary care physician: VIKRAM RAMIREZ M.D. Physical Exam - Vital Signs Vital Signs: Vital Signs - Last 24 Hrs Temp Pulse Pulse Resp BP BP Pulse Ox 09/14/18 09:29 98 H 20 101 H 09/14/18 08:09 107 H 18 09/14/18 08:00 98.9 F 99 H 18 134/92 95 09/14/18 06:00 98.1 F 107 H 22 170/94 94 L 09/14/18 00:00 98.2 F 94 H 22 159/84 94 L 09/13/18 20:00 98.0 F 110 H 22 154/92 96 09/13/18 18:13 98 H 16 99 09/13/18 17:15 98.9 F 98 H 18 131/84 97 09/13/18 14:11 86 20 09/13/18 12:00 99.1 F 104 H 16 118/65 98 09/13/18 11:23 98.4 F 144/72 - General General Appearance: Alert, Oriented x3, Cooperative, No acute distress - Head Head exam: Normal inspection Head exam detail: Other (alopecia) - Eye Eye exam: Normal appearance, PERRL, EOMI. negative: Conjunctival injection, Nystagmus Pupils: Normal accommodation - ENT ENT exam: Normal exam, Mucous membranes moist, Normal external ear exam, Normal orophraynx, TM's normal bilaterally. negative: Mucous membranes dry Ear exam: Normal external inspection. negative: External canal tenderness Nasal Exam: Normal inspection. negative: Discharge, Sinus tenderness Mouth exam: Normal external inspection, Tongue normal Teeth exam: Normal inspection. negative: Dental caries Throat exam: Normal inspection. negative: Tonsillar erythema, Tonsillomegaly, Tonsillar exudate - Neck Neck exam: Normal inspection, Full ROM. negative: Lymphadenopathy, Meningismus , Tenderness - Respiratory Respiratory exam: Normal lung sounds bilaterally. negative: Accessory muscle use, Chest wall tenderness, Respiratory distress - Cardiovascular Cardiovascular Exam: Normal rhythm, Normal heart sounds Peripheral Pulses: 2+: Radial (R), Radial (L), Dorsalis Pedis (R), Dorsalis Pedis (L) - GI/Abdominal GI/Abdominal exam: Soft, Normal bowel sounds. negative: Tenderness - Rectal Rectal exam: Deferred - exam: Deferred - Extremities Extremities exam: Normal inspection, Full ROM, Normal capillary refill. negative: Calf tenderness, Pedal edema, Tenderness - Back Back exam: Reports: Normal inspection, Full ROM, Paraspinal tenderness (thoracic ). Denies: Muscle spasm, Rash noted, Tenderness - Neurological Neurological exam: Alert, CN II-XII intact, Normal gait, Oriented X3, Reflexes normal. negative: Motor sensory deficit - Psychiatric Psychiatric exam: Normal affect, Normal mood - Skin Skin exam: Dry, Intact, Normal color, Warm Hospitalization - Hospitalization Admission Diagnosis: Confusion; pneumonia; UTI - Problem List/Discharge Diagnosis (1) UTI (urinary tract infection) Current Visit: Yes Status: Acute Discharge Diagnosis: Urinary tract infection type: acute cystitis Hematuria presence: without hematuria Qualified Code(s): N30.00 - Acute cystitis without hematuria Base Code: N39.0 - URINARY TRACT INFECTION, SITE NOT SPECIFIED Comment: 09/14/18 - Asymptomatic today - Urinalysis and urine micro done in ED, WBC 16-20, small leukocytes - Urine culture pending - Urine culture from 09/07 reviewed- mixed shelton - Change Rocephin to Omnicef 300mg BID x 10 days upon discharge (2) Confusion Current Visit: Yes Status: Acute Base Code: R41.0 - DISORIENTATION, UNSPECIFIED Comment: 09/14/18 - Significant cognitive improvement over night - Head CT in ED with no acute changes, + small vessel ischemic changes - Acute mental status changes likely multifactoal including abrupt cessation of long-term use narcotic medication, suspected UTI, sedating medications not prescribed found in UDS, chronic small vessel ischemic changes on head CT, and recent chemotherapy and radiation therapy for small cell lung cancer, and history of biplar depression with history of ECT- last 2 years ago. - to bring all of her prescription bottles for nursing to reconcile- no concerns with medications that were presented and reviewed - Seroquel use can cause a UDS to have a false positive methadone (3) Pneumonia Current Visit: Yes Status: Acute Discharge Diagnosis: Pneumonia type: due to unspecified organism Laterality: right Lung location: unspecified part of lung Qualified Code(s): J18.9 - Pneumonia, unspecified organism Base Code: J18.9 - PNEUMONIA, UNSPECIFIED ORGANISM Comment: 09/14/18 - Final CXR report from ED shows RLL consolidiation that is chronic, no change from previous - Additional finding of progressive severe mid thoracic compression deformity - Procalcitonin 0.046 - No new development of fever or cough during stay (4) Chronic pain Current Visit: Yes Status: Acute Base Code: G89.29 - OTHER CHRONIC PAIN Comment: 09/14/18 - Progression of severe mid thoracic compression deformity - Concern with using narcotic medication as UDS results positive for narcotic medications she is not prescribed - Significant improvement of thoracic pain with with Tylenol 650mg Q6hr, lidoderm patch, and Ultram PRN for breakthrough pain - PT/OT eval recommends walker with ambulation and home PT/OT (5) Closed compression fracture of thoracic vertebra Current Visit: Yes Status: Acute Base Code: S22.000A - WEDGE COMPRESSION FRACTURE OF UNSP THORACIC VERTEBRA, INIT Comment: 09/14/18 - Progression of severe mid thoracic compression deformity - Concern with using narcotic medication as UDS results positive for narcotic medications she is not prescribed - Significant improvement of thoracic pain with with Tylenol 650mg Q6hr, lidoderm patch, and Ultram PRN for breakthrough pain - PT/OT eval recommends walker with ambulation and home PT/OT (6) DVT prophylaxis Current Visit: Yes Status: Acute Base Code: [id number] - Comment: 09/14/18 - Lovenox 40mg QD during stay - Nursing to encourage ambulation (7) Full code status Current Visit: Yes Status: Acute Base Code: Z78.9 - OTHER SPECIFIED HEALTH STATUS Comment: 09/14/18 - Hospitalization Course Disposition: Home Health Service Hospital Course: Narinder Betancourt is a 73 y/o female brought to ED by for a 1 day history of acute changes in behavior, acting "drunk", disoriented to time. He notes that for the past 1 month she has been much more "fuzzy" in her thinking due to recent radiation and chemo for small cell lung cancer that included radiation treatment to the brain (Jun 2018). She has also been on long-term Hycet for the past year due to bone pain from chemo and radiation. reports she was supposed to take it as needed only and usually would take it at night but has been "hitting" it throughout the day because "it makes her feel good". Three days prior to arrival was seen in follow up with Dr Espinoza, oncology, and was changed from Hycet to Ultram as needed for chronic cancer-related pain. She abruptly stopped Hycet 3 days. She also takes Seroquel and Ativan for depression , anxiety and insomnia with recent addition to Diphenhydramine night time sleep aide which she was observed taking after being advised not to by psychiatrist Fely Bal. She was recently seen in [facility] for UTI and did complete Macrobid for that. In ED CBC unremarkable, coags normal, lactic acid 2.3, troponin <0.010, TSH normal, urinalysis WBC 16-20 and small leukocyte. EKG NSR, PVC x1, LAD, no acute abnormalities. Head CT no acute process. CXR RLL old vs. new consolidation and progression of severe mid thoracic compression deformity. UDS + for opiates, oxycodone, methadone, tricyclic, benzodiazapine. IV Rocephin and IV Azithromycin initiated in ED for treatment of suspected pneumonia and UTI and further admitted. 09/13/18: Resting in bed comfortably, amb to BR with min assist. Is A&O x3 but poor historian. and her both deny being prescribed methadone or morphine based products from outside providers, does not seek care at any pain clinics. Is complaining of mid back pain. is going to bring all of her medication bottles in for nursing and pharmacy to reconcile. is also concerned her medications could have been dispensed improperly from the pharmacy. MAPS report run today. Procedures: Imaging and X-Rays 09/12/18 22:44 CHEST 2 VIEWS [RAD] Stat HEAD WO CONTRAST [CT] Stat Cardiology Procedures 09/12/18 22:44 EKG NOW Abnormal Labs: Abnormal Lab Results 09/12/18 09/12/18 09/12/18 Range/Units 22:55 22:55 23:30 RDW 15.1 H (11.5-14.5) % Monocytes 21.0 H (0-9) % Chloride (98-107) mmol/L Carbon Dioxide 21.0 L (22-29) mmol/L Creatinine 1.0 H (0.5-0.9) mg/dL Random Glucose 114 H (74-109) mg/dL Lactic Acid 2.3 H (0.5-2.2) mmol/L Calcium (8.8-10.2) mg/dL Total Protein (6.6-8.7) g/dL Albumin (4.0-5.0) g/dL Urine Protein Trace H (NEGATIVE) Urine Ketones Trace H (NEGATIVE) Ur Leukocyte Esterase Small H (NEGATIVE) 09/13/18 09/13/18 Range/Units 06:20 06:20 RDW 15.1 H (11.5-14.5) % Monocytes 16.0 H (0-9) % Chloride 108 H (98-107) mmol/L Carbon Dioxide (22-29) mmol/L Creatinine (0.5-0.9) mg/dL Random Glucose 110 H (74-109) mg/dL Lactic Acid (0.5-2.2) mmol/L Calcium 8.7 L (8.8-10.2) mg/dL Total Protein 6.2 L (6.6-8.7) g/dL Albumin 3.5 L (4.0-5.0) g/dL Urine Protein (NEGATIVE) Urine Ketones (NEGATIVE) Ur Leukocyte Esterase (NEGATIVE) Condition at Discharge: (2) Stable Discharge Medications - Discharge Medications Prescriptions: Cefdinir [Omnicef] 300 mg PO BID 10 Days #20 cap Lidocaine Patch [Lidoderm] 1 each TOP DAILY #30 patch Home Medications: Ambulatory Orders Calcium Carb, Citrate/Vit D3 [Citracal + D ER Tablet] 1 each PO DAILY 06/17/14 [ Last Taken 1 Day Ago ~01/21/17] Melatonin 10 mg PO QHS PRN 06/17/14 [Last Taken 1 Day Ago ~01/21/17] Nebivolol HCl [Bystolic] 10 mg PO DAILY 06/17/14 [Last Taken 1 Day Ago ~01/21/17 ] [place]-3 Fatty Acids/Fish Oil [Fish Oil 1,000 mg Softgel] 1 each PO DAILY [Last Taken 1 Day Ago ~01/21/17] Albuterol Sulfate [Proair Hfa] 1 - 2 puff IH Q4H PRN inhaler 08/09/16 [Last Taken 1 Day Ago ~01/21/17] Ezetimibe [Zetia] 10 mg PO DAILY tab 08/09/16 [Last Taken 1 Day Ago ~01/21/17] Tiotropium Br/Olodaterol HCl [Stiolto Respimat Inhal [place]] 1 inh IH BID [Last Taken 1 Day Ago ~01/21/17] Cyanocobalamin (Vitamin B-12) [Vitamin B-12] 100 mcg PO DAILY tab 04/12/17 [ Last Taken Unknown] Desvenlafaxine Succinate [Pristiq] 50 mg PO DAILY 06/17/18 [Last Taken Unknown] Diphenoxylate HCl/Atropine [Lomotil 2.5-0.025 mg Tablet] 1 each PO DAILY PRN 03/27 [Last Taken Unknown] Ondansetron HCl [Zofran] 8 mg PO Q8H PRN 06/17/18 [Last Taken Unknown] Prochlorperazine Maleate [Compazine] 10 mg PO Q6H PRN 06/17/18 [Last Taken Unknown] Ranitidine HCl [Zantac] 150 mg PO DAILY 06/17/18 [Last Taken Unknown] Quetiapine Fumarate [Seroquel] 25 mg PO DAILY 09/12/18 [Last Taken Unknown] Quetiapine Fumarate [Seroquel] 50 mg PO QHS 09/12/18 [Last Taken Unknown] Tramadol HCl [Ultram] 50 mg PO Q8H PRN 09/12/18 [Last Taken Unknown] Acetaminophen [Tylenol 325Mg] 650 mg PO Q6HR tablet 09/14/18 [Last Taken Unknown] Cefdinir [Omnicef] 300 mg PO BID 10 Days #20 cap 09/14/18 [Last Taken Unknown] Lidocaine Patch [Lidoderm] 1 each TOP DAILY #30 patch 09/14/18 [Last Taken Unknown] Quetiapine Fumarate [Seroquel] 50 mg PO QHS tablet 09/14/18 [Last Taken Unknown ] Discharge Plan - Discharge Instructions Activity at Discharge: Ambulate Only With Your Walker Diet at Discharge: Low Fat, Low Cholesterol Additional Instructions: Appointments have been scheduled for you as follows: Dr. Ramirez at [facility], 09/20 at 9AM If your insurance does not cover Lidoderm patches may use OTC Salonpas 4% lidocaine patch Quality Measures - Quality Measures Quality Measures: Advance Directives, Documentation of Current Medications in Medical Record, Elder Maltreatment Screen and Follow-Up Plan, Screening for High Blood Pressure and F/U Documented - Current Medications Quality Measure: Measure #130: Documentation of Current Medications Documentation of Current Medications: <Current Medications Documented/Reviewed> [G8560] - Blood Pressure Screening Quality Measure: Screening for High Blood Pressure and Follow-Up Documented Does Patient Have Any of the Following: No Blood Pressure Classification: Hypertensive Reading Systolic Measurement: 144 Diastolic Measurement: 72 Screening for High Blood Pressure: < Normal BP, F/U Not Required > [G8700] - Advance Directives Quality Measure: Measure #47: Care Plan Advance Directives Established: No Advance Directives Information Provided To Patient: No Advance Directives on File: No Living Will: No Power of Taxation Accountant: No Advance Care Planning: <Care Plan/Decision Maker Documented; Discussed & Documented> [1123F] - Elder Abuse Suspicion Index Screening: Elder Abuse Suspicion Index Screening Rely on people for bathing, dressing, shopping, banking, etc: Yes Prevented from getting food, clothes, medication, etc: No Made to feel shamed or threatened by someone: No Forced to sign papers or use money against will: No Feel afraid, touched in ways not wanted or hurt physically: No Poor eye contact, withdrawn, malnourished, cuts or bruises: No Screening Result: Negative result EASI Reference Information: Hilaria NELSON, Castro C, Sheryl D, Jillian M.Development and validation of a tool to assist physicians identification of elder abuse: The Elder Abuse Suspicion Index (EASI ). Journal of Elder Abuse and Neglect, 2008; 20 (3): 276-300. - Elder Maltreatment Screen Quality Measures: Elder Maltreatment Screen and Follow-Up Plan Elder Maltreatment Screen: <Negative, No Follow-Up Plan Required> [G8734]
[2018-09-14] MEDS: DOCUSATE SODIUM 100 MG CAPSULE PO SCH (10:40)
--- NOTE | 2018-09-14 12:41 | Rehab Evaluation ---
Patient Information - Patient Information Diagnosis: Confusion, pneumonia, UTI Ordered Treatment: OT Evaluate and Treat Status: Initial Evaluation Surgery: No History: Detail (Pt presented to ED 09/12/18 due to slurred speech, confusion, and unsteadiness. Admitted for further medical evaluation and treatment. Pt reports that she has been experiencing pneumonia since at least June 2018. She completed chemotherapy for small cell lung cancer in about January 2018 and is in remission as of June 2018.) Past Medical/Surgical Hx: PAST MEDICAL/SURGICAL HISTORY Past Surgical History hyst, colon resection(mass), D/C mult. c-scope bassam. PMH - Respiratory Hx Respiratory Disorders Yes Hx Bronchitis Yes Hx Chronic Obstructive Yes Pulmonary Disease (COPD) Hx Pneumonia Yes Comment: cancer PMH - Cardiovascular Hx Cardiovascular Disorders Yes Hx Irregular Heartbeat Yes: states irregular beats Hx Heart Murmur Yes PMH - Neuro Hx Neurological Disorders Yes Hx Dizziness Yes Comment: memory loss, recent ECTs for depression PMH - GI Hx Gastrointestinal Disorders Yes Hx Abdominal Pain Yes: ruq Hx Diverticulitis Yes Hx Gastroesophageal Reflux Yes Hx Nausea/Vomiting Yes: at initial onset but not currently Comment: hx mass with resection 1975 PMH - Hx Genitourinary Disorders No Patient No Hx Urinary Tract Infection Yes PMH - Endocrine Hx Endocrine Disorders Yes Hx Diabetes No Hx Thyroid Disease Yes PMH - Musculoskeletal Hx Musculoskeletal Disorders Yes Hx Arthritis Yes: mostly hands and wrists Hx Osteoporosis Yes Comment: lupus less frequent flare ups PMH - Psych Hx Psychiatric Problems Yes Hx Anxiety Yes Hx Depression Yes: ongoing process PMH - Hematology/Oncology Hx Hematology/Oncology Yes Disorders Hx Cancer Yes Hx Chemotherapy No Hx Radiation Therapy No Premorbid Status: Detail (Pt reports that she was independent with all self- care at home, although she notes that would help w/showering and dressing as needed. She states that she was not using any assistive device for ambulation, but admits to having had 5-6 falls over the past 6 months. She describes just falling w/o any dizziness or sensation of unsteadiness, sometimes with getting up from sitting, sometimes just walking, once going up stairs. She reports she helps with some meal prep if she feels able.) Social History: Detail (Pt lives w/her in a single story home w/ basement. She has 2 steps with railings at the entrance. She states she does not need to use the basement for anything particular; laundry is on main floor. Her does the cooking and cleaning. She has tub/shower combination and shower chair as well as a standard toilet with a riser. She has a 2 wheeled walker.) Precautions: [place], Fall - Time With Patient Total Time Spent With Patient (Min): 35 Treatment Procedures: Detail (OT eval low complexity) Subjective Information - Subjective Information Per Patient Objective Data - Pain Pain Present: No - Mental Status Patient Orientation: Oriented x3 - Visual Perception Appears within normal limits for therapeutic activities (Pt wears glasses) - ROM Not within normal limits (Adolfo shoulder flexion limited to approximately 90 degrees, remaining adolfo UE AROM WNL) - Strength/Tone Not within normal limits (Adolfo shoulder strength 4-/5, adolfo elbow and adjuster leader strength 4/5) - Coordination Appears within normal limits for therapeutic activities - Bed Mobility Independent (Ind with supine to sit) - Transfers Independent (Ind with sit to stand from EOB and toilet.) - Balance Balance Sitting: Good Balance Standing: Fair - Sensation Intact - Gait Detail (Pt ambulating in room with 2 wheeled walker and SBA) - ADL's/IADL's Detail (Pt able to demonstrate doffing gown and slipper socks and donning sports bra (with min assist), shirt, pants, socks and shoes. Pt was very short of breath with activity. She was Ind with toileting. Pt and spouse have no concerns about self care tasks after return home.) Therapy Assessment - Therapy Assessment Detail (Pt presents with decreased overall endurance needed for safe and Ind ADLs.) Problem List - Problem List Physical Therapy Problem List: Detail (1. History of falls. 2. Activity intolerance. 3. Needs formal balance assessment.) Occupational Therapy Problem List: Detail (1. Decreased endurance needed for safe and Ind ADLs.) Goals - Goals Physical Therapy Goals: 1. Pt will complete formal balance assessment in order to make safety recommendations.(Goal Met). 2. Pt will tolerate 20 minutes of therapeutic activity w/o undue fatigue.(Goal Met). 3. Pt will safely and independently ambulate over household surfaces with or without assistive device. (Goal Met) Occupational Therapy Goals: 1. Pt will demonstrate improved endurance to allow safe and Ind self cares. Prognosis - Prognosis Good Plan - Plan Physical Therapy Plan: The patient is discharging from [facility] to home. Home PT is recommended. Occupational Therapy Plan: Pt is discharging home with home therapy.
[2018-09-14] MEDS ORDERED: QUETIAPINE FUMARATE 25 MG TABLET PO SCH (14:00)
== END 2018-09-14 12:30 | disposition home health service (06) | DRG 194 ==
LOC: ER 22:32 → MEDSURG 09-13 00:52
PROVIDERS: ADMIT Internal Medicine; ATTEND Internal Medicine
DX: J18.9 Pneumonia, unspecified organism (principal); N39.0 Urinary tract infection, site not specified; S22.000A Wedge compression fracture of unspecified thoracic vertebra, initial encounter for closed fracture; R41.0 Disorientation, unspecified; M32.9 Systemic lupus erythematosus, unspecified; J44.9 Chronic obstructive pulmonary disease, unspecified; E03.9 Hypothyroidism, unspecified; I49.9 Cardiac arrhythmia, unspecified; G89.29 Other chronic pain; F41.8 Other specified anxiety disorders; L65.9 Nonscarring hair loss, unspecified; M19.90 Unspecified osteoarthritis, unspecified site; Z90.49 Acquired absence of other specified parts of digestive tract; Z85.118 Personal history of other malignant neoplasm of bronchus and lung; Z87.891 Personal history of nicotine dependence
CPT/HCPCS: 70450; 71046; 80048; 80053; 80076; 80305; 81001; 83605; 84145; 84443; 84484; 85027; 85379; 85610; 85730; 90670; 90686; 93005; 93010; 94640; 94760; 96365; 96366; 97530; 99223; 99239; 99285; J0696; J1650; J7040; J7613

== ENCOUNTER 2018-11-12 10:03 | Emergency (ER) | payer MEDICARE, BC ==
--- NOTE | 2018-11-12 10:38 | Emergency Department Record ---
History of Present Illness - General Chief complaint: Female Urogenital Problem Stated complaint: UTI/CONFUSED Time Seen by Provider: 11/12/18 10:06 Source: Family Mode of Arrival: Wheelchair Limitations: Altered mental status - History of Present Illness Initial comments: pt has been confused and sleeping a lot for the last few days. pt has a hx of small ell lung ca and has undergone chemo and is now undergoing prophylactic radiation to her brain. she has had this problem befroe with confusion when she has a uti. Onset/Timin -: Week(s) Improves with: None Worsens with: None Patient : No Associated Symptoms: Weakness, Other - Related Data Sexually active: No Home Medications Medication Instructions Recorded Confirmed Last Taken Clonazepam 1 mg PO BID 11/12/18 11/12/18 Unknown Previous Rx's Medication Instructions Recorded Acetaminophen [Tylenol 325Mg] 650 mg PO Q6HR tablet 09/14/18 Lidocaine Patch [Lidoderm] 1 each TOP DAILY #30 patch 09/14/18 Cephalexin [Keflex] 500 mg PO BID #14 cap 11/12/18 Allergies Allergy/AdvReac Type Severity Reaction Status Date / Time adhesive tape Allergy Unknown BLISTERS Unverified 10/31/18 15:47 amphetamine aspartate Allergy Unknown PT UNSURE Unverified 10/31/18 15:47 [From Adderall] OF REACTION amphetamine sulfate Allergy Unknown PT UNSURE Unverified 10/31/18 15:47 [From Adderall] OF REACTION bupropion HCl Allergy Unknown HIVES Unverified 10/31/18 15:47 [From Wellbutrin] dextroamphetamine saccharate Allergy Unknown PT UNSURE Unverified 10/31/18 15:47 [From Adderall] OF REACTION dextroamphetamine sulfate Allergy Unknown PT UNSURE Unverified 10/31/18 15:47 [From Adderall] OF REACTION ibuprofen Allergy Unknown HIVES Unverified 10/31/18 15:47 ketorolac Allergy Unknown HIVES Unverified 10/31/18 15:47 ketorolac tromethamine Allergy Unknown HIVES Unverified 10/31/18 15:47 [From Toradol] levocetirizine Allergy Unknown PT UNSURE Unverified 10/31/18 15:47 dihydrochloride OF REACTION [From Xyzal] mirtazapine [From Remeron] Allergy Unknown PT UNSURE Unverified 10/31/18 15:47 OF REACTION naproxen Allergy Unknown HIVES Unverified 10/31/18 15:47 NSAIDS (Non-Steroidal Allergy Unknown HIVES Unverified 10/31/18 15:47 Anti-Inflamma prednisone Allergy Unknown ANAPHYLAXIS Unverified 10/31/18 15:47 Pyrazoles Allergy Unknown HIVES Unverified 10/31/18 15:47 Salicylates * Allergy Unknown HIVES Unverified 10/31/18 15:47 [Salicylates *RETIRED-12/15/15] alendronate sodium Allergy PT UNSURE Unverified 10/31/18 15:47 OF REACTION hydromorphone HCl Allergy HIVES Unverified 10/31/18 15:47 [From Dilaudid] methotrexate Allergy DIARRHEA Unverified 10/31/18 15:47 oxaprozin [From Daypro] Allergy HIVES Unverified 10/31/18 15:47 quetiapine fumarate Allergy HIVES Unverified 10/31/18 15:47 [From Seroquel] sulfasalazine Allergy HIVES Unverified 10/31/18 15:47 [From Azulfidine] venlafaxine HCl Allergy HIVES Unverified 10/31/18 15:47 [From Effexor] Travel Screening - Travel/Exposure Within Last 30 Days Have you traveled within the last 30 days?: No Review of Systems Reviewed: No additional complaints except as noted below Constitutional: Reports: As per HPI, Malaise, Weakness. Denies: Chills, Fever, Night sweats, Weight change Eyes: Reports: As per HPI. Denies: Eye discharge, Eye pain, Photophobia, Vision change ENT: Reports: As per HPI. Denies: Congestion, Dental pain, Ear pain, Epistaxis , Hearing loss, Throat pain Respiratory: Reports: As per HPI. Denies: Cough, Dyspnea, Hemoptysis, Stridor, Wheezes Cardiovascular: Reports: As per HPI. Denies: Arrhythmia, Chest pain, Dyspnea on exertion, Edema, Murmurs, Orthopnea, Palpitations, Paroxysmal nocturnal dyspnea, Rheumatic Fever, Syncope Endocrine: Reports: As per HPI. Denies: Fatigue, Heat or cold intolerance, Polydipsia, Polyuria Gastrointestinal: Reports: As per HPI. Denies: Abdominal pain, Constipation, Diarrhea, Hematemesis, Hematochezia, Melena, Nausea, Vomiting Genitourinary: Reports: As per HPI. Denies: Abnormal menses, Discharge, Dyspareunia, Dysuria, Frequency, Hematuria, Incontinence, Retention, Urgency Musculoskeletal: Reports: As per HPI. Denies: Arthralgia, Back pain, Gout, Joint swelling, Myalgia, Neck pain Skin: Reports: As per HPI. Denies: Bruising, Change in color, Change in hair/ nails, Lesions, Pruritus, Rash Neurological: Reports: As per HPI, Confusion. Denies: Abnormal gait, Headache, Numbness, Paresthesias, Seizure, Tingling, Tremors, Vertigo, Weakness Psychiatric: Reports: As per HPI. Denies: Anxiety, Auditory hallucinations, Depression, Homicidal thoughts, Suicidal thoughts, Visual hallucinations Hematological/Lymphatic: Reports: As per HPI. Denies: Anemia, Blood Clots, Easy bleeding, Easy bruising, Swollen glands Past Medical History - SOCIAL HISTORY Smoking Status: Former smoker - RESPIRATORY Hx Respiratory Disorders: Yes Hx Bronchitis: Yes Hx COPD: Yes Hx Pneumonia: Yes Comment:: cancer - CARDIOVASCULAR Hx Cardio Disorders: Yes Hx Irregular Heartbeat: Yes (states irregular beats) - NEURO Hx Neuro Disorders: Yes Comment:: memory loss, recent ECTs for depression - GI Hx GI Disorders: Yes Hx Abdominal Pain: Yes (ruq) Hx Diverticulitis: Yes Hx Reflux: Yes Hx Nausea/Vomiting: Yes (at initial onset but not currently) Hx of Polyps: Yes Comment:: hx mass with resection 1975 - Hx Genitourinary Disorders: No Hx UTI: Yes - ENDOCRINE Hx Endocrine Disorders: Yes Hx Diabetes: No Hx Thyroid Disease: Yes - MUSCULOSKELETAL Hx Musculoskeletal Disorders: Yes Hx Arthritis: Yes (mostly hands and wrists) Hx Osteoporosis: Yes Comment:: lupus less frequent flare ups - PSYCH Hx Psych Problems: Yes Hx Anxiety: Yes Hx Depression: Yes (ongoing process) - HEMATOLOGY/ONCOLOGY Hx Hematology/Oncology Disorders: Yes Hx Cancer: Yes Hx Chemotherapy: No Hx Radiation Therapy: No Family Medical History Any Significant Family History?: Yes Hx HTN: Father, Grandparents Hx Stroke: Mother Physical Exam - General General Appearance: Alert, Cooperative, No acute distress - Head Head exam: Normal inspection - Eye Eye exam: Normal appearance, PERRL, EOMI Pupils: Normal accommodation - ENT ENT exam: Normal exam, Mucous membranes moist, Normal external ear exam, Normal orophraynx Ear exam: Normal external inspection. negative: External canal tenderness Nasal Exam: Normal inspection. negative: Discharge, Sinus tenderness Mouth exam: Normal external inspection, Tongue normal Teeth exam: Normal inspection. negative: Dental caries Throat exam: Normal inspection. negative: Tonsillar erythema, Tonsillar exudate - Neck Neck exam: Normal inspection, Full ROM. negative: Tenderness - Respiratory Respiratory exam: Normal lung sounds bilaterally. negative: Respiratory distress - Cardiovascular Cardiovascular Exam: Regular rate, Normal rhythm, Normal heart sounds - GI/Abdominal GI/Abdominal exam: Soft, Normal bowel sounds. negative: Tenderness - Rectal Rectal exam: Deferred - exam: Deferred - Extremities Extremities exam: Normal inspection, Full ROM, Normal capillary refill. negative: Tenderness - Back Back exam: Reports: Normal inspection, Full ROM. Denies: Muscle spasm, Rash noted, Tenderness - Neurological Neurological exam: Alert, CN II-XII intact, Normal gait - Psychiatric Psychiatric exam: Normal affect, Normal mood - Skin Skin exam: Dry, Intact, Normal color, Warm Course Vital Signs 11/12/18 10:05 Temperature 98.4 F Pulse Rate 87 Respiratory 18 Rate Blood Pressure 105/70 Pulse Ox 96 - Reevaluation(s) Reevaluation #1: 11/12/18 13:55 ct neg. ot doing well was able to get up to commode Medical Decision Making - Lab Data Result diagrams: 11/12/18 10:55 11/12/18 10:55 Disposition Disposition: Discharge Clinical Impression: Confusion UTI (urinary tract infection) Qualifiers: Urinary tract infection type: acute cystitis Hematuria presence: without hematuria Qualified Code(s): N30.00 - Acute cystitis without hematuria Condition: (1) Good Instructions: Urinary Tract Infection in Women (ED) Additional Instructions: follow up with family doctor. return sooner if worse. Prescriptions: Cephalexin [Keflex] 500 mg PO BID #14 cap Forms: Patient Portal Access Quality - Quality Measures Quality Measures: N/A - Blood Pressure Screening Does Patient Have Any of the Following: No Blood Pressure Classification: Normal BP Reading Systolic Measurement: 105 Diastolic Measurement: 70 Screening for High Blood Pressure: < Normal BP, F/U Not Required > [[id number]]
[2018-11-12 11:01] LABS: HEMATOCRIT 44.1 % (35.0-47.0); HEMOGLOBIN 14.4 gm/dl (11.6-16.0); MEAN CELL VOLUME 90.2 fl (81-97); MEAN CORPUSCULAR HEMOGLOBIN 29.4 pg (27-33); MEAN CORPUSCULAR HGB CONC 32.7 g/dl (32-36); MEAN PLATELET VOLUME 9.4 fl (7.4-10.4); PLATELET COUNT 251 K/uL (130-400); RED BLOOD COUNT 4.89 M/uL (3.80-5.40); WHITE BLOOD COUNT W/O DIFF 4.8 K/uL (4.2-12.2)
[2018-11-12 11:15] LABS: BLOOD UREA NITROGEN 9 mg/dL (8-23); CREATININE 0.7 mg/dL (0.5-0.9); EST GLOMERULAR FILTRATION RATE > 60 mL/min; TOTAL PROTEIN 6.4 g/dL (6.6-8.7)
[2018-11-12 11:17] LABS: GLUCOSE,RANDOM 102 mg/dL (74-109)
[2018-11-12 11:20] LABS: ALB/GLOB RATIO 1.4 (1.1-1.8); ALBUMIN 3.7 g/dL (4.0-5.0); ALKALINE PHOSPHATASE 64 U/L (35-104); ALT/SGPT 19 U/L (<33); AST/SGOT 29 U/L (10.0-35.0)
[2018-11-12] MEDS ORDERED: 0.9 % SODIUM CHLORIDE 1,000 ML BAG IV ONE (12:12)
[2018-11-12 13:06] LABS: URINE APPEARANCE CLEAR; URINE BILIRUBIN SMALL (NEGATIVE); URINE BLOOD NEGATIVE (NEGATIVE); URINE COLOR YELLOW; URINE GLUCOSE (UA) NEGATIVE (NEGATIVE); URINE KETONE TRACE (NEGATIVE); URINE LEUKOCYTE ESTERASE MODERATE (NEGATIVE); URINE NITRITE NEGATIVE (NEGATIVE); URINE PROTEIN TRACE (NEGATIVE)
[2018-11-12 13:12] LABS: BARBITURATE SCREEN URINE DETECTED; BENZODIAZEPINE SCREEN URINE NOT DETECTED; METHADONE SCREEN URINE NOT DETECTED; THC SCREEN URINE DETECTED; TRICYCLIC ANTIDEPRESSANT SCRN NOT DETECTED
[2018-11-12 13:13] LABS: AMPHETAMINE SCREEN URINE NOT DETECTED; COCAINE SCREEN URINE NOT DETECTED; METHAMPHETAMINE SCREEN NOT DETECTED; OPIATE SCREEN URINE NOT DETECTED; OXYCODONE SCREEN URINE NOT DETECTED; PHENCYCLIDINE SCREEN URINE NOT DETECTED; PROPOXYPHENE SCREEN URINE NOT DETECTED
[2018-11-12 13:19] LABS: URINE AMORPHOUS SEDIMENT 2+; URINE BACTERIA 1+; URINE RBC 0 - 2 (NONE SEEN)
[2018-11-12] MEDS ORDERED: CEPHALEXIN 500 MG CAPSULE PO STA (14:01)
--- NOTE | 2018-11-14 20:14 | CT SCAN REPORT ---
EXAM: CT SCAN HEAD WO CONTRAST HISTORY: CONFUSION. TECHNIQUE: Noncontrast CT brain. COMPARISON: CT brain 09/12/18. FINDINGS: No midline shift, mass effect, or abnormal intra or extraaxial fluid collection. No cerebral edema, focal mass, or intracranial hemorrhage detected. Likely mild chronic small vessel ischemic white matter changes appear stable. Mild generalized cerebral volume loss appears stable. Basal cisterns are not effaced. No displaced calvarial fracture. Visualized paranasal sinuses and mastoid air cells are clear. IMPRESSION: 1. NO ACUTE INTRACRANIAL FINDINGS. 2. STABLE CHRONIC FINDINGS. JOB NUMBER: [id number] MTDD
== END 2018-11-12 14:46 | disposition home or self-care (01) ==
LOC: ER 10:03
DX: N30.00 Acute cystitis without hematuria (principal); R41.0 Disorientation, unspecified; C71.9 Malignant neoplasm of brain, unspecified; J44.9 Chronic obstructive pulmonary disease, unspecified; Z85.118 Personal history of other malignant neoplasm of bronchus and lung; Z87.891 Personal history of nicotine dependence
CPT/HCPCS: 70450; 80053; 80305; 81001; 84443; 85027; 99284; J7030